=== PATIENT | female | born 1985 | race Caucasian/White ===

== ENCOUNTER → 2022-01-11 16:08 | Outpatient (CLI) | payer OTHER, SELFPAY ==
[2022-01-11 16:48] LABS: COVID19 -Nasal RAPID POSITIVE (Negative)
== END ==
PROVIDERS: Visit Provider Registered Nurse
DX: U07.1 COVID-19 (principal)
CPT/HCPCS: 87635

== ENCOUNTER 2022-09-24 14:19 | Emergency (ER) | payer OTHER, SELFPAY ==
[2022-09-24 14:21] VITALS: BP 133/92; PULSE 79; RESP 20; TEMP 36.4; O2SAT 100; BMI 34.0
--- NOTE | 2022-09-24 14:27 | DI.RAD.S_ITS ---
PROCEDURE: XR HAND RT MIN 3V INDICATIONS: Pain after first PT TECHNIQUE: 4 views of the hand(s) acquired. COMPARISON: None. FINDINGS: Bones: No fractures or dislocations. Carpal bones are normally aligned. No suspicious bony lesions. Soft tissues: No suspicious soft tissue calcifications. IMPRESSION: No acute fracture or dislocation. If there are persistent symptoms or clinical suspicion for pathology, then repeat radiographs or advanced imaging (CT or MRI) may be considered for further evaluation. Dictated by: Nehemias Boudreaux M.D. on 09/24/2022 at 13:58 Approved by: Nehemias Boudreaux M.D. on 09/24/2022 at 13:59
[2022-09-24 17:10] VITALS: BP 113/72; PULSE 60; O2SAT 98
--- NOTE | 2022-09-24 17:29 | PC.NURSE ---
Pt reports right hand and fingers began to swell after OT yesterday. Pt has not had any OT since childhood and this was first time back.
--- NOTE | 2022-09-24 17:44 | ED.UPPEXIN ---
HPI - Extremity Injury (Upper) General Chief Complaint: Extremity Injury, Upper Stated Complaint: R hand swelling Time Seen by Provider: 09/24/22 17:44 Source: patient Mode of arrival: Ambulatory History of Present Illness HPI narrative: Patient is a 37-year-old female with history of cerebral palsy presenting today with right hand pain and swelling. She reports that she started occupational therapy because she has a chronic right wrist and hand contracture. She went yesterday therapist stretched it and moved it today she woke up and it is significantly swollen. She would a little bit of numbness but that seems to be better. No fever or chills. No other complaints or injury. Related Data Allergies Allergy/AdvReac Type Severity Reaction Status Date / Time Penicillins Allergy Unknown Verified 09/24/22 14:26 Review of Systems Review of Systems ROS Unobtainable: All systems reviewed & are unremarkable except as noted in HPI and below Patient History Social History Smoking Status: Never smoker Smoking Status: Never smoker alcohol intake frequency: 0-2 drinks per day Substance Use Type: does not use Exam Initial Vital Signs Initial Vital Signs: Vital Signs Temperature 97.6 F 09/24/22 14:21 Pulse Rate 79 09/24/22 14:21 Respiratory Rate 20 09/24/22 14:21 Blood Pressure 133/92 H 09/24/22 14:21 Pulse Oximetry 100 09/24/22 14:21 Oxygen Delivery Method Room Air 09/24/22 14:21 GENERAL: Well-appearing, well-nourished and in no acute distress. CARDIOVASCULAR: peripheral pulses in tact, cap refill <2 sec RESPIRATORY: No respiratory distress, speaks in full sentences without difficulty EXTREMITIES: Normal range of motion, no clubbing or edema. Neurovascularly intact Right hand swollen able to move fingers no evidence of erythema distal radial pulse intact. NEUROLOGICAL: Cranial nerves II through XII grossly intact. Normal gait and speech. SKIN: Warm, dry, no petechiae, no rashes or lesions. Course Orders Ordered: ED Orders 09/24/22 14:27 XR hand RT min 3V Stat Vital Signs Vital signs: Vital Signs - 8 hr 09/24/22 14:21 09/24/22 17:10 Temperature 97.6 F Pulse Rate 79 60 Respiratory Rate 20 Blood Pressure 133/92 H 113/72 Pulse Oximetry 100 98 Oxygen Delivery Method Room Air Room Air MDM - Extremity Injury (Upper) Imaging Data Extremity x-ray #1: Radiologist's Impression: PROCEDURE:? XR HAND RT MIN 3V ? INDICATIONS:? Pain after first PT ? TECHNIQUE:? 4 views of the hand(s) acquired.? ? COMPARISON:? None. ? FINDINGS:? ? Bones:? No fractures or dislocations.? Carpal bones are normally aligned.? No suspicious bony lesions.? ? Soft tissues:? No suspicious soft tissue calcifications.? ? ? IMPRESSION:? No acute fracture or dislocation. ? If there are persistent symptoms or clinical suspicion for pathology, then repeat radiographs or advanced imaging (CT or MRI) may be considered for further evaluation. ? ? Dictated by: Nehemias Boudreaux M.D. on 09/24/2022 at 13:58 ? ? Approved by: Nehemias Boudreaux M.D. on 09/24/2022 at 13:59 ? [facility] Narrative Medical decision making narrative: Patient 37-year-old female who presents today with right hand swelling. She started occupational therapy yesterday for chronic right hand contracture. I suspect overuse injury. X-ray is negative no evidence of infection. Recommend elevation ice and ibuprofen. Supportive care only. Discharge Plan Departure Patient Disposition: Home Clinical Impression: Sprain of hand, right Instructions: DI for Hand Injury Activity Restrictions/Additional Instructions: *You have been diagnosed with right hand sprain *What to do: At this time keep hand and arm elevated ice as needed. Monitor for any finish her swelling I think it is probably from over use. *Continue to take medications as directed Tylenol Motrin as needed for pain *Follow up with your primary care provider in 2-3 days or call [phone] *Return to ER if you should have increasing pain swelling redness or any new, worsening or concerning symptoms Referrals: Lito,MD Avila [Primary Care Provider] - Stand Alone Forms: Patient Portal/API
== END 2022-09-24 17:57 | disposition home or self-care (01) ==
PROVIDERS: Emergency Provider Emergency Medicine
DX: S63.91XA Sprain of unspecified part of right wrist and hand, initial encounter (principal); X58.XXXA Exposure to other specified factors, initial encounter
CPT/HCPCS: 73130; 99281; 99283

== ENCOUNTER → 2023-02-11 09:04 | Outpatient (CLI) | payer OTHER, MEDICAID, SELFPAY ==
--- NOTE | 2023-02-11 09:49 | DI.MRI.S_ITS ---
PROCEDURE: MR LUMBAR SPINE WO CON INDICATIONS: LUMBAR STENOSIS WITH LEFT SCIATICA TECHNIQUE: Noncontrast sagittal T1 spin echo and T2 fast echo, sagittal STIR, and T2 fast spin echo through the lumbar spine. In cases with scoliosis, additional coronal T2 fast spin echo may be performed. COMPARISON: [facility] Outside Film, MR, MR LUMBAR SPINE WITHOUT CONTRAST, 11/21/2019, 17:12. FINDINGS: Image quality: Excellent. Alignment and Curvature: Approximately 12 mm of anterolisthesis of L5 on S1, consistent with grade 2, increased compared to prior where previously measured 9 mm. Bone Marrow: Bilateral pars interarticularis defects at L5-S1. Marrow is of normal overall signal. No acute vertebral body compression fractures. Spinal Cord: Conus medullaris terminates at the L1 level. Visualized cord demonstrates normal signal and size. Paraspinous Soft Tissues: No paravertebral masses. T12-L1: Normal appearance. L1-L2: Normal appearance. L2-L3: Normal appearance. L3-L4: Normal appearance. L4-L5: Facet arthropathy. No central canal or neural foraminal stenosis. L5-S1: Anterolisthesis. Facet arthropathy. Mild central canal stenosis is similar to prior. Severe bilateral neural foraminal stenosis. IMPRESSION: 1. Progression of grade 2 anterolisthesis at L5-S1 measuring 12 mm, previously 9 mm with associated pars interarticularis defects. 2. Similar mild central canal stenosis at L5-S1 and severe bilateral neural foraminal stenosis. Dictated by: Patrice Pascual M.D. on 02/13/2023 at 8:35 Approved by: Patrice Pascual M.D. on 02/13/2023 at 8:40
== END ==
PROVIDERS: Referring Provider Orthopaedic Surgery Orthopaedic Surgery of the Spine; Visit Provider Orthopaedic Surgery Orthopaedic Surgery of the Spine
DX: M48.062 Spinal stenosis, lumbar region with neurogenic claudication (principal); M43.17 Spondylolisthesis, lumbosacral region; M48.07 Spinal stenosis, lumbosacral region
CPT/HCPCS: 72148

== ENCOUNTER → 2023-04-28 14:52 | Outpatient (CLI) | payer OTHER, MEDICAID, SELFPAY ==
--- NOTE | 2023-04-28 14:55 | DI.RAD.S_ITS ---
PROCEDURE: XR ANKLE LT MIN 3V INDICATIONS: Left ankle injury TECHNIQUE: 3 views of the ankle were acquired. COMPARISON: None. FINDINGS: Bones: No fractures or dislocations. Ankle mortise is normally aligned. No suspicious bony lesions. Soft tissues: No tibiotalar joint effusion. Achilles tendon appears normal. IMPRESSION: No acute bony abnormality or significant effusion. Dictated by: Ryan Díaz M.D. on 04/28/2023 at 14:19 Approved by: Ryan Díaz M.D. on 04/28/2023 at 14:20
== END ==
PROVIDERS: Referring Provider Registered Nurse; Visit Provider Registered Nurse
DX: M25.572 Pain in left ankle and joints of left foot (principal)
CPT/HCPCS: 73610

== ENCOUNTER → 2023-07-07 | Outpatient (CLI) | payer OTHER, MEDICAID, SELFPAY ==
--- NOTE | 2023-07-07 14:17 | DI.MRI.S_ITS ---
PROCEDURE: MR HEAD/BRAIN WO CON INDICATIONS: Migraine TECHNIQUE: Noncontrast axial T1 spin echo, axial T2 fast spin echo, sagittal and axial FLAIR, coronal T2 fast spin echo, axial gradient echo, axial diffusion and ADC through the brain. COMPARISON: None. FINDINGS: Image quality: Excellent. CSF Spaces: Basal cisterns are patent. No extra-axial fluid collections. Ventricles are normal in size and shape. Brain: Focal encephalomalacia with volume loss can be seen involving the left centrum semiovale, as on series 7, image 18 and on series 8, image 18. No additional suspicious white matter foci can be seen. No intracranial masses or hemorrhage. [place]/white matter interface is normal. Brainstem appears normal. Diffusion-weighted images demonstrate no acute infarct. No chronic ischemic insults. Normal intravascular flow voids are present. Skull and face: Calvarium has normal marrow signal. Orbits appear normal. Sinuses: Sinuses and mastoids are clear. IMPRESSION: A cause of headache is not seen. There is focal volume loss and encephalomalacia involving the left centrum semiovale. Prior infarct is suspected, although please correlate with patient history. To the limits of this noncontrast study, no findings masses or mass effect can be seen. Dictated by: Michael Javed M.D. on 07/07/2023 at 14:29 Approved by: Michael Javed M.D. on 07/07/2023 at 14:30
== END ==
PROVIDERS: PCP Nurse Practitioner Family; Referring Provider Nurse Practitioner Family; Visit Provider Nurse Practitioner Family
DX: G43.909 Migraine, unspecified, not intractable, without status migrainosus (principal); G93.89 Other specified disorders of brain
CPT/HCPCS: 70551

== ENCOUNTER 2023-07-20 10:38 | Emergency (ER) | payer OTHER, MEDICAID, SELFPAY ==
[2023-07-20] VITALS (12 sets, daily range): BP systolic 112–134; BP diastolic 56–78; PULSE 77–86; RESP 12; TEMP 36.7; O2SAT 95–99; BMI 34.0
[2023-07-20 11:22] LABS: Add Manual Diff / Slide Review NO; Basophils Absolute Auto 0 /uL (0-100); Basophils Percent Auto 0.2 % (0-2); Eosinophils Absolute Auto 100 /uL (0-450); Hematocrit 36.1 % (36-46); Hemoglobin 12.3 g/dL (12.0-16.0); Lymphocytes Absolute Auto 1400 /uL (1100-4500); Lymphocytes Percent Auto 14.7 % (25-40); Mean Corpuscular Hemoglobin 31.6 PG (26-34); Monocytes Absolute Auto 400 /uL (0-900); Monocytes Percent Auto 4.7 % (3-14); Neutrophils Absolute Auto 7400 /uL (1500-7000); Neutrophils Percent Auto 79.4 % (50-75); Platelet Count 304 X10^3/uL (150-400); Red Blood Cell Count 3.88 X10^6/uL (4.0-5.2); Red Cell Distribution Width 12.4 % (11.6-14.8); White Blood Cell Count 9.4 X10^3/uL (4.5-11.0)
[2023-07-20 11:24] LABS: Bacteria Urine Few (2-10); Culture Indicated Urine Cult Not Indicated; Mucus Urine 1+ (Negative); RBC Urine 30-100/HPF (0-5/HPF); Squamous Epithelial Cell Urine 1-5 /HPF (0-5/HPF); Urine Volume 10mL (spun); WBC Urine 30-100/HPF (0-5/HPF)
[2023-07-20 11:28] LABS: Alanine Aminotransferase 18 IU/L (<35); Albumin 4.7 g/dL (3.5-5.0); Albumin Globulin Ratio 1.8 (1.0-2.8); Alkaline Phosphatase 64 U/L (38-126); Aspartate Aminotransferase 23 IU/L (14-36); BUN Creatinine Ratio 13.6 (6-22); Bilirubin Total 0.3 mg/dL (0.2-1.3); Blood Urea Nitrogen 9 mg/dL (7-17); Calcium 8.9 mg/dL (8.4-10.2); Carbon Dioxide 24 mmol/L (22-32); Chloride 111 mmol/L (98-107); Estimated Glomerular Filt Rate > 60 mL/min (>60); Globulin 2.6 g/dL (1.7-4.1); Glucose 103 mg/dL (70-100); HEMOLYSIS < 15 (0-50); Potassium 3.7 mmol/L (3.4-5.1); Sodium 141 mmol/L (137-145); Total Protein 7.3 g/dL (6.3-8.2)
--- NOTE | 2023-07-20 11:45 | DI.CT.S_ITS ---
PROCEDURE: CT KIDNEY URETER BLADDER (KUB) INDICATIONS: right flank pain TECHNIQUE: Axial sections were acquired from the lung bases to the pubic symphysis. Coronal and sagittal reformats were performed. For radiation dose reduction, the following was used: automated exposure control, adjustment of mA and/or kV according to patient size. COMPARISON: None. FINDINGS: Image quality: Diagnostic. Lower Chest: No significant findings. URINARY: Right Kidney: Moderate hydronephrosis. No renal calcifications. Right Ureter: 5 mm distal right ureteral calculus Hounsfield units 388 approximately 1 cm from the ureterovesicular junction. Left Kidney: No stones or hydronephrosis. Left Ureter: No hydroureter. Bladder: Normal wall thickness. No stones. ABDOMEN: Liver: No contour-deforming solid mass. Gallbladder: No radiopaque gallstones or wall thickening. Biliary ducts: No biliary dilation. Pancreas: No ductal dilation. Spleen: Size is within normal limits. Adrenal Glands: No adrenal nodules. Stomach and Bowel: Normal colonic caliber, without significant wall thickening. Peritoneum: No abnormal intraperitoneal fluid. No free air. Ventral Wall: No hernia. Abdominal Nodes: No enlarged retroperitoneal or mesenteric lymph nodes. Vessels: Aorta and inferior vena cava are normal in size. PELVIS: Pelvic Organs: Unremarkable. Pelvic Nodes: Unremarkable. Miscellaneous: No inguinal hernias are seen. Bones: Unremarkable. IMPRESSION: 5 mm distal right ureteral calculus with moderate hydronephrosis and hydroureter. Dictated by: Hayley Carrasco M.D. on 07/20/2023 at 12:26 Approved by: Hayley Carrasco M.D. on 07/20/2023 at 12:30
[2023-07-20] MEDS: KETOROLAC 30 MG/ML VIAL 15 MG IV (11:50)
--- NOTE | 2023-07-20 11:53 | ED_ITS ---
HPI - Abdominal Pain General Chief Complaint: Abdominal Pain Stated Complaint: rt abd and back pain Time Seen by Provider: 07/20/23 11:15 Source: patient Mode of arrival: Ambulatory History of Present Illness HPI narrative: Patient 38-year-old healthy female presents today with right-sided abdominal pain. She reports it started yesterday off and on sometimes nauseous no vomiting. Been taking Tylenol and ibuprofen without significant relief. Did not denies any fever or chills. Minimal flank pain but does seem to be radiating around to her abdomen. She denies any painful frequent urination. Related Data Home Medications Medication Instructions Recorded Confirmed baclofen 10 mg tablet 10 mg PO TID 04/28/23 04/28/23 control PO 04/28/23 escitalopram oxalate 10 mg tablet 10 mg PO DAILY 04/28/23 04/28/23 (Lexapro) Previous Rx's Medication Instructions Recorded hydrocodone 5 mg-acetaminophen 325 1 tab PO Q6H PRN pain #10 tabs 07/20/23 mg tablet nitrofurantoin 100 mg PO Q12H 5 days #10 caps 07/20/23 monohydrate/macrocrystals 100 mg capsule (Macrobid) ondansetron 4 mg disintegrating 4 mg PO Q8H PRN nausea and 07/20/23 tablet vomiting #10 tabs tamsulosin 0.4 mg capsule (Flomax) 0.4 mg PO BEDTIME #7 caps 07/20/23 Allergies Allergy/AdvReac Type Severity Reaction Status Date / Time Penicillins Allergy Unknown Verified 04/28/23 14:43 Patient History Social History Smoking Status: Never smoker Smoking Status: Never smoker alcohol intake frequency: 0-2 drinks per day Substance Use Type: does not use Exam Initial Vital Signs Initial Vital Signs: Vital Signs Pulse Rate 85 07/20/23 10:48 Pulse Oximetry 97 07/20/23 10:48 GENERAL: Alert pleasant 38-year-old female and in no acute distress. HEENT: Head atraumatic,EOMI, pupils reactive, face symmetric, moist mucous membranes CARDIOVASCULAR: Regular rate and rhythm without murmurs, rubs or gallops. RESPIRATORY: Breath sounds equal bilaterally, no wheezes rales or rhonchi. ABDOMEN: Soft, no real right upper quadrant tenderness negative Arredondo's sign soft nondistended : No CVA tenderness EXTREMITIES: Normal range of motion, no clubbing or edema. Neurovascularly intact NEUROLOGICAL: Alert and oriented x4.Normal gait and speech. SKIN: Warm, dry, no laceration, no petechiae, no rashes or lesions. Course Orders Ordered: ED Orders 07/20/23 10:50 Urine Microscopic Stat 07/20/23 11:07 CBC Auto Diff [Complete Blood Count AUTO DIFF] Stat CMP [Comprehensive Metabolic Panel] Stat Lipase Stat 07/20/23 11:45 CT kidney ureter bladder (KUB) Stat Discontinued Medications Ketorolac Tromethamine (Ketorolac 30 Mg/Ml Vial) 15 mg IV NOW ONE Stop: 07/20/23 11:46 Last Admin: 07/20/23 11:50 Dose: 15 mg Documented By: HARISH Vital Signs Vital signs: Vital Signs - 8 hr 07/20/23 10:48 07/20/23 10:49 07/20/23 10:49 Temperature Pulse Rate 85 84 Respiratory Rate Blood Pressure 134/76 Pulse Oximetry 97 97 Oxygen Delivery Method 07/20/23 11:00 07/20/23 11:00 07/20/23 11:11 Temperature 98.1 F Pulse Rate 84 83 Respiratory Rate 12 Blood Pressure 125/69 134/76 Pulse Oximetry 97 96 Oxygen Delivery Method Room Air 07/20/23 11:30 07/20/23 11:30 07/20/23 11:57 Temperature Pulse Rate 80 82 Respiratory Rate Blood Pressure 116/70 Pulse Oximetry 96 95 Oxygen Delivery Method 07/20/23 11:57 07/20/23 12:00 07/20/23 12:00 Temperature Pulse Rate 81 Respiratory Rate Blood Pressure 114/67 113/64 Pulse Oximetry 96 Oxygen Delivery Method 07/20/23 12:30 07/20/23 12:30 07/20/23 13:00 Temperature Pulse Rate 80 79 Respiratory Rate Blood Pressure 112/78 Pulse Oximetry 98 98 Oxygen Delivery Method 07/20/23 13:01 07/20/23 13:01 07/20/23 13:30 Temperature Pulse Rate 79 86 Respiratory Rate Blood Pressure 123/56 L Pulse Oximetry 97 99 Oxygen Delivery Method 07/20/23 13:30 07/20/23 14:00 07/20/23 14:00 Temperature Pulse Rate 77 Respiratory Rate Blood Pressure 112/62 113/65 Pulse Oximetry 99 Oxygen Delivery Method MDM - Abdominal Pain Lab Data 07/20/23 11:07 07/20/23 11:07 Labs: Lab Results 07/20/23 07/20/23 Range/Units 10:50 11:07 WBC 9.4 (4.5-11.0) X10^3/uL RBC 3.88 L (4.0-5.2) X10^6/uL Hgb 12.3 (12.0-16.0) g/dL Hct 36.1 (36-46) % MCV 93.0 (80-100) fL MCH 31.6 (26-34) PG MCHC 34.0 (30-36) % RDW 12.4 (11.6-14.8) % Plt Count 304 (150-400) X10^3/uL Neut % (Auto) 79.4 H (50-75) % Lymph % (Auto) 14.7 L (25-40) % [place] % (Auto) 4.7 (3-14) % Eos % (Auto) 1.0 L (2-4) % Baso % (Auto) 0.2 (0-2) % Neut # (Auto) 7400 H (4196-0757) /uL Lymph # (Auto) 1400 (8093-8468) /uL [place] # (Auto) 400 (0-900) /uL Eos # (Auto) 100 (0-450) /uL Baso # (Auto) 0 (0-100) /uL Sodium 141 (137-145) mmol/L Potassium 3.7 (3.4-5.1) mmol/L Chloride 111 H (98-107) mmol/L Carbon Dioxide 24 (22-32) mmol/L BUN 9 (7-17) mg/dL Creatinine 0.66 (0.52-1.04) mg/dL Estimated GFR > 60 (>60) mL/min BUN/Creatinine Ratio 13.6 (6-22) Glucose 103 H (70-100) mg/dL Calcium 8.9 (8.4-10.2) mg/dL Total Bilirubin 0.3 (0.2-1.3) mg/dL AST 23 (14-36) IU/L ALT 18 (<35) IU/L Alkaline Phosphatase 64 (38-126) U/L Total Protein 7.3 (6.3-8.2) g/dL Albumin 4.7 (3.5-5.0) g/dL Globulin 2.6 (1.7-4.1) g/dL Albumin/Globulin Ratio 1.8 (1.0-2.8) Lipase 106 (23-300) U/L Urine RBC 30-100/hpf H (0-5/HPF) Urine WBC 30-100/hpf H (0-5/HPF) Ur Squamous Epith Cells 1-5 /hpf (0-5/HPF) Urine Bacteria Few (2-10) H (None) Urine Mucus 1+ H (Negative) Ur Culture Indicated? Cult not indicated Vol Urine Centrifuged 10ml (spun) Point of care testing: Point of Care Testing Test Results Negative Urine Dip Bedside Urine Glucose Negative Bedside Urine Bilirubin - Negative Bedside Urine Ketone - Negative Urine Specific [place] 1.030 Bedside Urine Occult Blood +++ Bedside Urine pH 6.0 Bedside Urine Protein + 30 Bedside Urine Urobilinogen - Negative Bedside Urine Nitrite - Negative Bedside Urine Leukocytes - Negative Esterase Imaging Data CT scan - abdomen/pelvis: Radiologist's Impression: 5 mm distal right ureteral calculus with moderate hydronephrosis and hydroureter MDM Narrative Medical decision making narrative: Patient 38-year-old female presents today with waxing and waning abdominal pain nausea vomiting. She does have some hematuria concern initially for kidney stone. CT does in fact confirm a 5 mm distal ureter stone. Blood work has been reviewed overall reassuring no evidence ALLYSON creatinine is 0.66 no significant leukocytosis urinalysis does show hematuria and few bacteria CT has been reviewed Will treat for UTI and supportive care. Since pain is significantly better after Toradol. Discharge Plan Departure Patient Disposition: Home Clinical Impression: Kidney stones Instructions: DI for Kidney Stones Activity Restrictions/Additional Instructions: * You've been diagnosed with kidney stone * What to do: Increase fluid intake, Strain urine, try to catch stone * Please follow-up with your primary care provider in the next 2-3 days, you may require urology consultation please discuss this with -If you should have fever, or pain is uncontrolled with medication at home or any other concerning symptoms return to ER for further evaluation MEDICATIONS Take Motrin 600 mg every 8 hours as needed for pain Take [place] every 6 hours if needed for severe pain Take Zofran every 4-6 hours if needed for nausea CONTROLLED SUBSTANCE DISCHARGE (Narcotoic/benzodiazepine) 1. You have been prescribed narcotic medications, it does have acetaminophen/Tylenol/paracetamol in it so do not take extra Tylenol or Tylenol containing products 2. Please understand that we cannot provide further refills of narcotics, benzodiazepines or controlled substances through the ED and her pain management will need to be through your provider. 3. While on these medications you cannot drive or operate heavy machinery. 4. You cannot sign legal documents or perform any duties such as this. 5. As long as you're taking opiate pain medications he should also be taking a stool softener such as Colace, Dulcolax, MiraLAX or prune juice, to help avoid constipation. Prescriptions: New tamsulosin [Flomax] 0.4 mg capsule 0.4 mg PO BEDTIME Qty: 7 0RF hydrocodone-acetaminophen 5-325 mg tablet 1 tab PO Q6H PRN (Reason: pain) Qty: 10 0RF ondansetron 4 mg tablet,disintegrating 4 mg PO Q8H PRN (Reason: nausea and vomiting) Qty: 10 0RF nitrofurantoin monohyd/m-cryst [Macrobid] 100 mg capsule 100 mg PO Q12H 5 Days Qty: 10 0RF Rx Instructions: must administer with a meal/food No Action baclofen 10 mg tablet 10 mg PO TID escitalopram oxalate [Lexapro] 10 mg tablet 10 mg PO DAILY control PO Referrals: Tammy Abrams FNP-C [Primary Care Provider] - Stand Alone Forms: Patient Portal/API
[2023-07-20 12:18] LABS: Lipase 106 U/L (23-300)
== END 2023-07-20 14:13 | disposition home or self-care (01) ==
PROVIDERS: Emergency Provider Emergency Medicine; PCP Nurse Practitioner Family
DX: N20.0 Calculus of kidney (principal)
CPT/HCPCS: 36415; 74176; 80053; 81003; 81015; 81025; 83690; 85025; 96374; 99284; J1885

== ENCOUNTER 2024-01-12 07:30 | Outpatient (RCR) | payer OTHER, MEDICAID, SELFPAY ==
--- NOTE | 2023-12-27 15:45 | PT.OIE ---
Current Diagnoses Other cerebral palsy (12/27/23) Stiffness of right hand, not elsewhere classified (12/27/23) Stiffness of right hip, not elsewhere classified (12/27/23) Stiffness of left hip, not elsewhere classified (12/27/23) Stiffness of right knee, not elsewhere classified (12/27/23) Stiffness of right ankle, not elsewhere classified (12/27/23) Spondylolisthesis, lumbosacral region (12/27/23) Radiculopathy, lumbosacral region (12/27/23) Other lack of coordination (12/27/23) Weakness (12/27/23) Past Medical History (Last Reviewed 11/28/23 @ 09:52 by Carlitos Thompson DO) Lumbosacral radiculopathy at L5 Spondylolisthesis at L5-S1 level Past Surgical History (Last Reviewed 11/28/23 @ 09:52 by Carlitos Thompson DO) Surgical history of tubal ligation Visit Care Team Role Provider Type ALONDRA [place] Family Provider Non-Staff Primary Care Provider Specialty: Nursing Address: [address] [place] [address], [phone] Fax: Email: Carlitos Thompson DO Attending Provider Physician Referring Provider Specialty: Interventional Radiology Physiatry Pain Management Address: [address] [place] [address], [phone] Email: [email or web address] Therapy Initial Evaluation PT-OP-A Visit Information Start: 12/27/23 07:22 Freq: Status: Active Protocol: Document 12/27/23 07:23 NM (Rec: 12/27/23 08:57 NM [id number]) Out-Patient Physical Therapy Visit Information Visit Information Visit Type Initial Evaluation Visit Note 6 visits initially approved Visit Start Time 07:30 Visit Stop Time 08:15 Visit Number 1 Evaluation Information Evaluation Date 12/27/23 Precautions Precautions R sided CP and spondylolisthesis PT-OP-B Current Condition Start: 12/27/23 07:22 Freq: Status: Active Protocol: Document 12/27/23 07:23 NM (Rec: 12/27/23 08:57 NM [id number]) Current Condition History of Current Condition Onset Date chronic Current Complaints pain History of Current Condition Pt presents with back pain, has had since 15-18 y.o. Onset gradually occurred. She states that has spondylolisthesis for several years. She has had PT in the past for same condition; however, had to stop going. She did plan to have surgery ( fusion) last year, but did not go through. She has [address] Thompson, planning to try PT. Pt reports pain with sitting for long periods, lying down except in specific position ( has to prop her leg up, lie on her side), standing for any period of time (except for alternating weight shift). She reports that the only thing that helps is consciously stabilizing her core, kegels . She has CP on R side (demos R toe walk). She does botox every 3 months on her R side ( leg, arm, hand). She has an AFO (with spring)- has had for a year but reports causes increased pain (prescribed by MD for adult CP). She has not had one since elementary school. States that in the past year, she reports that she has had worsening pain on her R side; whereas, she reports that her L side used to hurt more. Reports that she has pain worse on L side, but occasionally on R side. Has follow up for botox in January 2024; will follow up with Dr. Thompson in March to assess next plan. Prior Treatments and Tests Lumbar spine MRI 02/2023 Impression: Progression of grade 2 anterolisthesis at L5- S1 measuring 12 mm, previously 9 mm with associated pars interarticularis defects. Similar mild central canal stenosis at L5-S1 and several bilateral neural foraminal stenosis. Treatment Goals Patient/Caregiver Goals decrease pain PT-OP-C Subjective Start: 12/27/23 07:22 Freq: Status: Active Protocol: Document 12/27/23 07:23 NM (Rec: 12/27/23 08:57 NM [id number]) OP-PT Subjective Patient Comments Patient Comments Pt consents to evaluation Patient Questionnaires Oswestry Low Back Index Oswestry Score 46/100 OP-PT Pain Assessment Location lumbar spine Pain Location Details L>R; PSIS/SIJ; lateral hip pain Intensity 7 Scale Used Numeric (0 - 10) Description Aching,Dull Description- Other tingling down to toes L side ( regular); worse:10 Frequency Constant Radiating Location RLE: to lateral knee, LLE: to 2-5 toes along posterior leg Variations/Patterns prn to RLE; most frequent to LLE Pain Aggravating Factors Position,Changing Position, Standing,Sitting,Walking, Bending,Lifting Other Pain Alleviating Factors exercises-core stabilization 1 -2/wk Comments Pain Comments Gabapentin, tylenol, ibuprofen PT-OP-F Manual Assessment Start: 12/27/23 07:22 Freq: Status: Active Protocol: Document 12/27/23 07:23 NM (Rec: 12/27/23 08:57 NM [id number]) Manual Assessments Soft Tissue Assessment Soft Tissue Mobility Assessment Shorted R gastrocnemius. B piriformis and paraspinals (L> R) shortened Joint Mobility Assessment Joint Mobility Assessment Hypermobility of lumbar spine. Hypomobility of B hips, R>L; empty end feels into flexion with rotation and limited by tone in sitting with RLE. R ankle hypomobile PT-OP-G Mobility & Gait Start: 12/27/23 07:22 Freq: Status: Active Protocol: Document 12/27/23 07:23 NM (Rec: 12/27/23 08:57 NM [id number]) OP Gait Assessment Gait Gait Assistance Required: Independent Distance (Feet) 150 Assistive Devices Assistive Device None Gait Deviations General Gait Pattern Antalgic,Decreased Feet Clearance Factors Limiting Gait Function Factors Limiting Gait Function Abnormal Tonal Influences, Decreased Strength,Limited Range of Motion,Pain Comments Gait Comments Demos R ankle plantarflexion with R hip hike during R swing and R knee remains flexed during R stance. Increased trunk rotation with R swing PT-OP-H Neuro Start: 12/27/23 07:22 Freq: Status: Active Protocol: Document 12/27/23 07:23 NM (Rec: 12/27/23 08:57 NM [id number]) Deep Tendon Reflex & Clonus Assessment Deep Tendon Reflex Left Achilles Deep Tendon Reflex 0 Absent Left Patellar Deep Tendon Reflex 0 Absent Right Achilles Deep Tendon Reflex 1+ Diminished Right Patellar Deep Tendon Reflex 2+ Normal Muscle Tone Tone Assessment Left Lower Extremity Muscle Tone Comments Modified Vidhi: will assess next session d/t time Demos immediate positioning into ankle plantarflexion/ inversion/supination PT-OP-J Posture/Palpation/Skin Start: 12/27/23 07:22 Freq: Status: Active Protocol: Document 12/27/23 07:23 NM (Rec: 12/27/23 08:57 NM [id number]) Posture Evaluation Position Standing Head/C-Spine Posture Forward Head Thorax Posture (L) Prominent L-Spine Posture Increased Lordosis Shoulder Posture (L) Rounded,(R) Rounded,(R) Elevated Pelvis Posture Anteriorly Tilted,(R) Iliac Crest Superior,(L) PSIS Posterior Hip Posture (L) Neutral,(R) Externally Rotated Knee Posture (L) Genu Valgus,(R) Genu Valgus,(R) Excess Flexion Ankle/Foot Posture (R) Plantarflexed,(R) Supinated,(R) Calcaneal Inversion,(R) Forefoot Inversion Palpation Assessment Location lumbar spine Palpation Details Tightness along B paraspinals, L>R Tenderness along L PSIS/SIJ, piriformis No tenderness with midline palpation except for L4-L5-S1- S2 PT-OP-K Range of Motion Start: 12/27/23 07:22 Freq: Status: Active Protocol: Document 12/27/23 07:23 NM (Rec: 12/27/23 08:57 NM [id number]) Lumbar Spine Range of Motion Lumbar Spine Active Percentage Flexion 50 Extension 10 Rotation Left 25 Rotation Right 50 Lateral Flexion Left 50 Lateral Flexion Right 25 Comments + flex, R LF, L rot ++ ext Hip Goniometric Range of Motion Hip Right Internal Rotation 15 External Rotation 18 Left Internal Rotation 30 External Rotation 18 PT-OP-L Special Tests Start: 12/27/23 07:22 Freq: Status: Active Protocol: Document 12/27/23 07:23 NM (Rec: 12/27/23 08:57 NM [id number]) Special Tests Lumbar Spine Special Tests Slump Test Results - Comments no change in tension Distraction Test Results + Comments mild pain relief Roper/Quadrant Test Results + Comments L ea direction to toes Hip Special Tests FADIR Test Results + Comments posterior hip/buttock and back pain reproduced PT-OP-M Strength Start: 12/27/23 07:22 Freq: Status: Active Protocol: Document 12/27/23 07:23 NM (Rec: 12/27/23 08:57 NM [id number]) Trunk Strength Trunk Manual Muscle Testing Flexion 4- Good- Extension 4- Good- Rotation Left 4- Good- Rotation Right 4- Good- Lateral Flexion Left 4- Good- Lateral Flexion Right 4- Good- Comments no pain Hip Strength Hip Manual Muscle Testing Right Flexion (L2) 3+ Fair+ Adduction 4- Good- External Rotation 3 Fair Internal Rotation 2+ Poor+ Left Flexion (L2) 4 Good External Rotation 4 Good Internal Rotation 4 Good Knee Strength Knee Manual Muscle Testing Right Flexion (S2) 3+ Fair+ Extension (L3) 3+ Fair+ Left Flexion (S2) 4+ Good+ Extension (L3) 4+ Good+ Ankle/Foot Strength Ankle and Foot Manual Muscle Testing Right Dorsiflexion (L4) 3+ Fair+ Plantarflexion (S1) 3+ Fair+ Comments tested in sitting Left Dorsiflexion (L4) 4+ Good+ Plantarflexion (S1) 4+ Good+ Comments tested in sitting PT-OP-Q Treatments Start: 12/27/23 07:22 Freq: Status: Active Protocol: Document 12/27/23 07:23 NM (Rec: 12/27/23 08:57 NM [id number]) Therapeutic Exercises Supine Exercises TrA activation Supine Exercise Name 1. activation, 2. BKFO Side bilateral Equipment Used increased time for all d/t education Reps/Minutes 1. 10x2 w/ PT and pt palpation, 2. 5 ea direction Comments pt has to change position d/t back pain s/p 5 BKFO Sitting Exercises abdominal bracing isometrics Sitting Exercise Name 1. rectus abdominus, 2. obliques Side bilateral Equipment Used 2 pillows on lap Reps/Minutes 10x5 ea position Comments monitored for pain- increased time for all d/t education Self-Care/Home Management Treatment Education Other Education Education on core bracing and lumbar/hip strengthening for spondylolisthesis stabilization. Education on gait patterns/abnormalities and AFO type/use with recommendation to follow up with referring provider for AFO to determine best wear pattern/time PT-OP-T Assessment and Plan Start: 12/27/23 07:22 Freq: Status: Active Protocol: Document 12/27/23 07:23 NM (Rec: 12/27/23 08:57 NM [id number]) Physical Therapy Assessment Rehab Potential Rehabilitation Potential Good Evaluation Complexity Number of Personal Factors/Comorbidities 1-2 Number of Body Systems Impaired 1-2 Clinical Presentation at Evaluation Stable Impairments Impairments Activity Tolerance,Balance, Functional Activities, Functional Mobility,Gait,Pain, Posture,ROM,Sensation,Soft Tissue Mobility,Strength,Tone, Transfers Other Concerns Barriers to Rehabilitation Pt unable to tolerate supine, sitting, or standing positions for more than a few minutes at time, and she has to frequently change positions due to pain. Goals Three Impairment compliance with HEP Sr. Logistics Analyst Goal (LTG) Pt will report compliance with HEP at least 3x/wk in order to maximize progression with PT and transition into maintenance program upon discharge LTG Duration 10 weeks 03/08/24 Two Impairment trunk strength 4-/5 Short Term Goal (STG) Pt will be educated on core bracing in various positions and be able to successfully demonstrate abdominal bracing at least 7/10 reps without cueing STG Duration 5 weeks 02/02/24 Sr. Logistics Analyst Goal (LTG) Pt will improve global trunk strength to at least 4/5 or better in order to demonstrate improved core bracing and increased trunk strength for spinal stability during ADLs LTG Duration 10 weeks 03/08/24 One Impairment Oswestry 46/100 indicating pain with ADLs and functional mobility Short Term Goal (STG) Pt will report that she is able to sit > 30 minutes and stand > 10 minutes without increase in low back pain (<7- 8/10) in order to demonstrate improved activity tolerance and symptom management STG Duration 8 weeks 02/23/24 Sr. Logistics Analyst Goal (LTG) Pt will report no increase in low back pain (<7-8/10) while cleaning her home in order to demonstrate improved activity tolerance and symptom management LTG Duration 10 weeks 03/08/24 Assessment Summary Assessment Pt is a 38 y.o. presenting with chronic lumbar spine pain with radicular symptoms into LLE and RLE. No known UNRULY but pain has been worsening for several years. She has received a surgical consult in the past but did not proceed. Past imaging reveals a spondylolisthesis and canal stenosis that is consistent with pt symptoms. Pt's radicular symptoms are worse on her L side, radiating posteriorly to her toes; whereas, her R sided radicular symptoms terminate at her knee. Pt's symptoms are reproduced with 3D testing and vertebral compression; small relief with distraction but pt is unable to tolerate lying on her back for prolonged periods due to pain. Pt patellar and achilles deep tendon reflexes not present on L side. She also has limitations in global trunk AROM and strength, B hip AROM and strength, in addition to decreased R ankle AROM and strength. Pt has R hemiplegic CP. She has increased tone on her R side for which she receives botox. She demonstrates a R plantarflexed and knee flexion gait pattern due to tone, which likely contributes heavily to her back pain symptoms. Pt has an AFO but did not use one previously since childhood, so she does not wear her AFO. She would likely benefit from an AFO transitioning period or a new referral for a different AFO. Pt has impairments in ROM, strength, gait, balance, functional mobility, pain management, and activity tolerance. PT educated pt on exam findings and plan of care. Pt would benefit from skilled PT for progressive trunk/core strengthening, flexibility in order to improve symptom management and improve activity tolerance. Physical Therapy Plan Frequency and Duration Frequency of Treatment 2x/Week Duration of treatment (weeks) 10 Plan of Care Start Date 12/27/23 Plan of Care End Date 03/08/24 Therapeutic Interventions Therapeutic Interventions Balance Training,Gait Training ,Home Exercise Program,Joint Mobilizations,Manual Therapy, Neuromuscular Re-education, Orthotic/Prosthetic Management ,Patient/Caregiver Education, Self-Care/Home Management, Sensory Integration,Soft Tissue Mobilization,Taping, Therapeutic Activities, Therapeutic Exercises Modalities Cold Pack/Ice Massage,Electric Stimulation,Hot Packs, Ultrasound Other Therapeutic Interventions No joint mobilizations to lumbar spine d/t anterolisthesis L5-S1, avoid end range flexion No mechanical traction Other Referrals/Consults Referrals/Consults Recommended Referral back to lead technician/ commercial green retrofit architect for adjustment of AFO Next Visit Focus/Plan Next Note Type Treatment Note Next Visit Plan Review HEP Initiate seated/sidelying core bracing. Gopi stretch vs standing hip flexor stretch, standing vs seated calf/ hamstring stretch. trial seated neural gliding RLOliver
--- NOTE | 2023-12-29 15:28 | PT.OTN ---
Current Diagnoses Other cerebral palsy (12/29/23) Stiffness of right hand, not elsewhere classified (12/29/23) Stiffness of right hip, not elsewhere classified (12/29/23) Stiffness of left hip, not elsewhere classified (12/29/23) Stiffness of right knee, not elsewhere classified (12/29/23) Stiffness of right ankle, not elsewhere classified (12/29/23) Spondylolisthesis, lumbosacral region (12/29/23) Radiculopathy, lumbosacral region (12/29/23) Other lack of coordination (12/29/23) Weakness (12/29/23) Physical Therapy Treatment Note PT-OP-A Visit Information Start: 12/27/23 07:22 Freq: Status: Active Protocol: Document 12/29/23 14:30 NM (Rec: 12/29/23 15:28 NM [id number]) Out-Patient Physical Therapy Visit Information Visit Information Visit Type Treatment Note Visit Note 6 visits initially approved Visit Start Time 14:33 Visit Stop Time 15:15 Visit Number 2 Evaluation Information Evaluation Date 12/27/23 Precautions Precautions R sided CP and spondylolisthesis PT-OP-B Current Condition Start: 12/27/23 07:22 Freq: Status: Active Protocol: Document 12/27/23 07:23 NM (Rec: 12/27/23 08:57 NM [id number]) Current Condition History of Current Condition Onset Date chronic Current Complaints pain History of Current Condition Pt presents with back pain, has had since 15-18 y.o. Onset gradually occurred. She states that has spondylolisthesis for several years. She has had PT in the past for same condition; however, had to stop going. She did plan to have surgery ( fusion) last year, but did not go through. She has [address] Thompson, planning to try PT. Pt reports pain with sitting for long periods, lying down except in specific position ( has to prop her leg up, lie on her side), standing for any period of time (except for alternating weight shift). She reports that the only thing that helps is consciously stabilizing her core, kegels . She has CP on R side (demos R toe walk). She does botox every 3 months on her R side ( leg, arm, hand). She has an AFO (with spring)- has had for a year but reports causes increased pain (prescribed by MD for adult CP). She has not had one since elementary school. States that in the past year, she reports that she has had worsening pain on her R side; whereas, she reports that her L side used to hurt more. Reports that she has pain worse on L side, but occasionally on R side. Has follow up for botox in January 2024; will follow up with Dr. Thompson in March to assess next plan. Prior Treatments and Tests Lumbar spine MRI 02/2023 Impression: Progression of grade 2 anterolisthesis at L5- S1 measuring 12 mm, previously 9 mm with associated pars interarticularis defects. Similar mild central canal stenosis at L5-S1 and several bilateral neural foraminal stenosis. Treatment Goals Patient/Caregiver Goals decrease pain PT-OP-C Subjective Start: 12/27/23 07:22 Freq: Status: Active Protocol: Document 12/29/23 14:30 NM (Rec: 12/29/23 15:28 NM [id number]) OP-PT Subjective Patient Comments Patient Comments No changes following evaluation. Reports 4-5/10 back pain today. Took her gabapentin today. HEP performed at home PT-OP-F Manual Assessment Start: 12/27/23 07:22 Freq: Status: Active Protocol: Document 12/27/23 07:23 NM (Rec: 12/27/23 08:57 NM [id number]) Manual Assessments Soft Tissue Assessment Soft Tissue Mobility Assessment Shorted R gastrocnemius. B piriformis and paraspinals (L> R) shortened Joint Mobility Assessment Joint Mobility Assessment Hypermobility of lumbar spine. Hypomobility of B hips, R>L; empty end feels into flexion with rotation and limited by tone in sitting with RLE. R ankle hypomobile PT-OP-G Mobility & Gait Start: 12/27/23 07:22 Freq: Status: Active Protocol: Document 12/27/23 07:23 NM (Rec: 12/27/23 08:57 NM [id number]) OP Gait Assessment Gait Gait Assistance Required: Independent Distance (Feet) 150 Assistive Devices Assistive Device None Gait Deviations General Gait Pattern Antalgic,Decreased Feet Clearance Factors Limiting Gait Function Factors Limiting Gait Function Abnormal Tonal Influences, Decreased Strength,Limited Range of Motion,Pain Comments Gait Comments Demos R ankle plantarflexion with R hip hike during R swing and R knee remains flexed during R stance. Increased trunk rotation with R swing PT-OP-H Neuro Start: 12/27/23 07:22 Freq: Status: Active Protocol: Document 12/29/23 14:30 NM (Rec: 12/29/23 15:28 NM [id number]) Deep Tendon Reflex & Clonus Assessment Deep Tendon Reflex Left Achilles Deep Tendon Reflex 0 Absent Left Patellar Deep Tendon Reflex 0 Absent Right Achilles Deep Tendon Reflex 1+ Diminished Right Patellar Deep Tendon Reflex 2+ Normal Muscle Tone Tone Assessment Left Lower Extremity Muscle Tone Comments Modified Vidhi: 1 Demos immediate positioning into ankle plantarflexion/ inversion/supination PT-OP-J Posture/Palpation/Skin Start: 12/27/23 07:22 Freq: Status: Active Protocol: Document 12/27/23 07:23 NM (Rec: 12/27/23 08:57 NM [id number]) Posture Evaluation Position Standing Head/C-Spine Posture Forward Head Thorax Posture (L) Prominent L-Spine Posture Increased Lordosis Shoulder Posture (L) Rounded,(R) Rounded,(R) Elevated Pelvis Posture Anteriorly Tilted,(R) Iliac Crest Superior,(L) PSIS Posterior Hip Posture (L) Neutral,(R) Externally Rotated Knee Posture (L) Genu Valgus,(R) Genu Valgus,(R) Excess Flexion Ankle/Foot Posture (R) Plantarflexed,(R) Supinated,(R) Calcaneal Inversion,(R) Forefoot Inversion Palpation Assessment Location lumbar spine Palpation Details Tightness along B paraspinals, L>R Tenderness along L PSIS/SIJ, piriformis No tenderness with midline palpation except for L4-L5-S1- S2 PT-OP-K Range of Motion Start: 12/27/23 07:22 Freq: Status: Active Protocol: Document 12/27/23 07:23 NM (Rec: 12/27/23 08:57 NM [id number]) Lumbar Spine Range of Motion Lumbar Spine Active Percentage Flexion 50 Extension 10 Rotation Left 25 Rotation Right 50 Lateral Flexion Left 50 Lateral Flexion Right 25 Comments + flex, R LF, L rot ++ ext Hip Goniometric Range of Motion Hip Right Internal Rotation 15 External Rotation 18 Left Internal Rotation 30 External Rotation 18 PT-OP-L Special Tests Start: 12/27/23 07:22 Freq: Status: Active Protocol: Document 12/27/23 07:23 NM (Rec: 12/27/23 08:57 NM [id number]) Special Tests Lumbar Spine Special Tests Slump Test Results - Comments no change in tension Distraction Test Results + Comments mild pain relief Roper/Quadrant Test Results + Comments L ea direction to toes Hip Special Tests FADIR Test Results + Comments posterior hip/buttock and back pain reproduced PT-OP-M Strength Start: 12/27/23 07:22 Freq: Status: Active Protocol: Document 12/27/23 07:23 NM (Rec: 12/27/23 08:57 NM [id number]) Trunk Strength Trunk Manual Muscle Testing Flexion 4- Good- Extension 4- Good- Rotation Left 4- Good- Rotation Right 4- Good- Lateral Flexion Left 4- Good- Lateral Flexion Right 4- Good- Comments no pain Hip Strength Hip Manual Muscle Testing Right Flexion (L2) 3+ Fair+ Adduction 4- Good- External Rotation 3 Fair Internal Rotation 2+ Poor+ Left Flexion (L2) 4 Good External Rotation 4 Good Internal Rotation 4 Good Knee Strength Knee Manual Muscle Testing Right Flexion (S2) 3+ Fair+ Extension (L3) 3+ Fair+ Left Flexion (S2) 4+ Good+ Extension (L3) 4+ Good+ Ankle/Foot Strength Ankle and Foot Manual Muscle Testing Right Dorsiflexion (L4) 3+ Fair+ Plantarflexion (S1) 3+ Fair+ Comments tested in sitting Left Dorsiflexion (L4) 4+ Good+ Plantarflexion (S1) 4+ Good+ Comments tested in sitting PT-OP-Q Treatments Start: 12/27/23 07:22 Freq: Status: Active Protocol: Document 12/29/23 14:30 NM (Rec: 12/29/23 15:28 NM [id number]) Therapeutic Exercises Sidelying Exercises hip flexor stretch Sidelying Exercise Name with strap Side bilateral Reps/Minutes 30 ea Sitting Exercises calf and hamstring stretch Side bilateral Equipment Used strap, foot elevated on step Reps/Minutes 60 ea Comments feels less in R leg hip abduction Side bilateral Resistance level 3 band Reps/Minutes 10 ea Comments with core bracing neural gliding Sitting Exercise Name 1. neutral, 2. w/ ER/abd, 3. with ADD/IR Side left Reps/Minutes 10 ea Comments with head movement, no trunk movement, neutral spine abdominal bracing isometrics Sitting Exercise Name 1. rectus abdominus (not today ), 2. obliques (not today), 3. lateral flex Side bilateral Equipment Used blue vietnamese ball Reps/Minutes 15x3 Other Exercises stretching Other Exercise Name hamstring and calf- HEP with towel under foot Side bilateral Equipment Used EARNESTINE Reps/Minutes 60 ea Comments feels more in R leg Manual Therapy Treatment Consent Patient gave verbal consent for manual Yes treatment Soft Tissue Mobilization lumbar spine Body Location paraspinals, glutes, QL Mobilization Type Rolling,Strumming Intensity/Depth Moderate Body Position Sitting Comments Arms supported on 2 pillows. R side more restricted but L side more tender and area of pain. Monitored for pain PT-OP-T Assessment and Plan Start: 12/27/23 07:22 Freq: Status: Active Protocol: Document 12/29/23 14:30 NM (Rec: 12/29/23 15:28 NM [id number]) Physical Therapy Assessment Goals Three Impairment compliance with HEP Cassandra Architect Goal (LTG) Pt will report compliance with HEP at least 3x/wk in order to maximize progression with PT and transition into maintenance program upon discharge LTG Duration 10 weeks 03/08/24 Two Impairment trunk strength 4-/5 Short Term Goal (STG) Pt will be educated on core bracing in various positions and be able to successfully demonstrate abdominal bracing at least 7/10 reps without cueing STG Duration 5 weeks 02/02/24 Cassandra Architect Goal (LTG) Pt will improve global trunk strength to at least 4/5 or better in order to demonstrate improved core bracing and increased trunk strength for spinal stability during ADLs LTG Duration 10 weeks 03/08/24 One Impairment Oswestry 46/100 indicating pain with ADLs and functional mobility Short Term Goal (STG) Pt will report that she is able to sit > 30 minutes and stand > 10 minutes without increase in low back pain (<7- 8/10) in order to demonstrate improved activity tolerance and symptom management STG Duration 8 weeks 02/23/24 Care Home Goal (LTG) Pt will report no increase in low back pain (<7-8/10) while cleaning her home in order to demonstrate improved activity tolerance and symptom management LTG Duration 10 weeks 03/08/24 Assessment Summary Assessment Pt reports no change from back pain 5/10 at end of session. Pain is easily flared with activity, demos decreased activity tolerance but pt is motivated to participate in PT . However, responds well to manual therapy and hip flexor stretching. Trialed both manual stretching and assisted stretching in sidelying with strap, pillow or PT supporting legs. No increased pain with lateral flexion isometric or seated hip abduction; however more limited on R side than L. Towel/EARNESTINE stretch more appropriate for RLE than seated stretch. Emphasis on improving muscle length on R side to offload pressure on low back. Pt would benefit from skilled PT for progressive flexibility and strengthening especially for trunk stabilization in order to improve symptom management for improved ADL tolerance. Physical Therapy Plan Frequency and Duration Frequency of Treatment 2x/Week Duration of treatment (weeks) 10 Plan of Care Start Date 12/27/23 Plan of Care End Date 03/08/24 Therapeutic Interventions Therapeutic Interventions Balance Training,Gait Training ,Home Exercise Program,Joint Mobilizations,Manual Therapy, Neuromuscular Re-education, Orthotic/Prosthetic Management ,Patient/Caregiver Education, Self-Care/Home Management, Sensory Integration,Soft Tissue Mobilization,Taping, Therapeutic Activities, Therapeutic Exercises Modalities Cold Pack/Ice Massage,Electric Stimulation,Hot Packs, Ultrasound Other Therapeutic Interventions No joint mobilizations to lumbar spine d/t anterolisthesis L5-S1, avoid end range flexion No mechanical traction Other Referrals/Consults Referrals/Consults Recommended Referral back to cereal supervisor/ cargo mate for adjustment of AFO Next Visit Focus/Plan Next Note Type Treatment Note Next Visit Plan Review HEP Teach log roll. Initiate seated/sidelying core bracing. sidelying vs standing hip flexor stretch, standing vs seated calf/hamstring stretch. seated neural gliding RLE
--- NOTE | 2024-01-03 08:16 | PT.OTN ---
Current Diagnoses Other cerebral palsy (01/03/24) Stiffness of right hand, not elsewhere classified (01/03/24) Stiffness of right hip, not elsewhere classified (01/03/24) Stiffness of left hip, not elsewhere classified (01/03/24) Stiffness of right knee, not elsewhere classified (01/03/24) Stiffness of right ankle, not elsewhere classified (01/03/24) Spondylolisthesis, lumbosacral region (01/03/24) Radiculopathy, lumbosacral region (01/03/24) Other lack of coordination (01/03/24) Weakness (01/03/24) Physical Therapy Treatment Note PT-OP-A Visit Information Start: 12/27/23 07:22 Freq: Status: Active Protocol: Document 01/03/24 07:26 NM (Rec: 01/03/24 08:16 NM [id number]) Out-Patient Physical Therapy Visit Information Visit Information Visit Type Treatment Note Visit Note 6 visits initially approved Visit Start Time 07:30 Visit Stop Time 08:10 Visit Number 3 Evaluation Information Evaluation Date 12/27/23 Precautions Precautions R sided CP and spondylolisthesis PT-OP-B Current Condition Start: 12/27/23 07:22 Freq: Status: Active Protocol: Document 12/27/23 07:23 NM (Rec: 12/27/23 08:57 NM [id number]) Current Condition History of Current Condition Onset Date chronic Current Complaints pain History of Current Condition Pt presents with back pain, has had since 15-18 y.o. Onset gradually occurred. She states that has spondylolisthesis for several years. She has had PT in the past for same condition; however, had to stop going. She did plan to have surgery ( fusion) last year, but did not go through. She has [address] Thompson, planning to try PT. Pt reports pain with sitting for long periods, lying down except in specific position ( has to prop her leg up, lie on her side), standing for any period of time (except for alternating weight shift). She reports that the only thing that helps is consciously stabilizing her core, kegels . She has CP on R side (demos R toe walk). She does botox every 3 months on her R side ( leg, arm, hand). She has an AFO (with spring)- has had for a year but reports causes increased pain (prescribed by MD for adult CP). She has not had one since elementary school. States that in the past year, she reports that she has had worsening pain on her R side; whereas, she reports that her L side used to hurt more. Reports that she has pain worse on L side, but occasionally on R side. Has follow up for botox in January 2024; will follow up with Dr. Thompson in March to assess next plan. Prior Treatments and Tests Lumbar spine MRI 02/2023 Impression: Progression of grade 2 anterolisthesis at L5- S1 measuring 12 mm, previously 9 mm with associated pars interarticularis defects. Similar mild central canal stenosis at L5-S1 and several bilateral neural foraminal stenosis. Treatment Goals Patient/Caregiver Goals decrease pain PT-OP-C Subjective Start: 12/27/23 07:22 Freq: Status: Active Protocol: Document 01/03/24 07:26 NM (Rec: 01/03/24 08:16 NM [id number]) OP-PT Subjective Patient Comments Patient Comments Pt reports her back is the same. Usually her back hurts more in the morning, states a little tender. States 6/10 today, states more achy after last session. States that the stretches at home feel good. PT-OP-F Manual Assessment Start: 12/27/23 07:22 Freq: Status: Active Protocol: Document 12/27/23 07:23 NM (Rec: 12/27/23 08:57 NM [id number]) Manual Assessments Soft Tissue Assessment Soft Tissue Mobility Assessment Shorted R gastrocnemius. B piriformis and paraspinals (L> R) shortened Joint Mobility Assessment Joint Mobility Assessment Hypermobility of lumbar spine. Hypomobility of B hips, R>L; empty end feels into flexion with rotation and limited by tone in sitting with RLE. R ankle hypomobile PT-OP-G Mobility & Gait Start: 12/27/23 07:22 Freq: Status: Active Protocol: Document 12/27/23 07:23 NM (Rec: 12/27/23 08:57 NM [id number]) OP Gait Assessment Gait Gait Assistance Required: Independent Distance (Feet) 150 Assistive Devices Assistive Device None Gait Deviations General Gait Pattern Antalgic,Decreased Feet Clearance Factors Limiting Gait Function Factors Limiting Gait Function Abnormal Tonal Influences, Decreased Strength,Limited Range of Motion,Pain Comments Gait Comments Demos R ankle plantarflexion with R hip hike during R swing and R knee remains flexed during R stance. Increased trunk rotation with R swing PT-OP-H Neuro Start: 12/27/23 07:22 Freq: Status: Active Protocol: Document 12/29/23 14:30 NM (Rec: 12/29/23 15:28 NM [id number]) Deep Tendon Reflex & Clonus Assessment Deep Tendon Reflex Left Achilles Deep Tendon Reflex 0 Absent Left Patellar Deep Tendon Reflex 0 Absent Right Achilles Deep Tendon Reflex 1+ Diminished Right Patellar Deep Tendon Reflex 2+ Normal Muscle Tone Tone Assessment Left Lower Extremity Muscle Tone Comments Modified Vidhi: 1 Demos immediate positioning into ankle plantarflexion/ inversion/supination PT-OP-J Posture/Palpation/Skin Start: 12/27/23 07:22 Freq: Status: Active Protocol: Document 12/27/23 07:23 NM (Rec: 12/27/23 08:57 NM [id number]) Posture Evaluation Position Standing Head/C-Spine Posture Forward Head Thorax Posture (L) Prominent L-Spine Posture Increased Lordosis Shoulder Posture (L) Rounded,(R) Rounded,(R) Elevated Pelvis Posture Anteriorly Tilted,(R) Iliac Crest Superior,(L) PSIS Posterior Hip Posture (L) Neutral,(R) Externally Rotated Knee Posture (L) Genu Valgus,(R) Genu Valgus,(R) Excess Flexion Ankle/Foot Posture (R) Plantarflexed,(R) Supinated,(R) Calcaneal Inversion,(R) Forefoot Inversion Palpation Assessment Location lumbar spine Palpation Details Tightness along B paraspinals, L>R Tenderness along L PSIS/SIJ, piriformis No tenderness with midline palpation except for L4-L5-S1- S2 PT-OP-K Range of Motion Start: 12/27/23 07:22 Freq: Status: Active Protocol: Document 12/27/23 07:23 NM (Rec: 12/27/23 08:57 NM [id number]) Lumbar Spine Range of Motion Lumbar Spine Active Percentage Flexion 50 Extension 10 Rotation Left 25 Rotation Right 50 Lateral Flexion Left 50 Lateral Flexion Right 25 Comments + flex, R LF, L rot ++ ext Hip Goniometric Range of Motion Hip Right Internal Rotation 15 External Rotation 18 Left Internal Rotation 30 External Rotation 18 PT-OP-L Special Tests Start: 12/27/23 07:22 Freq: Status: Active Protocol: Document 12/27/23 07:23 NM (Rec: 12/27/23 08:57 NM [id number]) Special Tests Lumbar Spine Special Tests Slump Test Results - Comments no change in tension Distraction Test Results + Comments mild pain relief Roper/Quadrant Test Results + Comments L ea direction to toes Hip Special Tests FADIR Test Results + Comments posterior hip/buttock and back pain reproduced PT-OP-M Strength Start: 12/27/23 07:22 Freq: Status: Active Protocol: Document 12/27/23 07:23 NM (Rec: 12/27/23 08:57 NM [id number]) Trunk Strength Trunk Manual Muscle Testing Flexion 4- Good- Extension 4- Good- Rotation Left 4- Good- Rotation Right 4- Good- Lateral Flexion Left 4- Good- Lateral Flexion Right 4- Good- Comments no pain Hip Strength Hip Manual Muscle Testing Right Flexion (L2) 3+ Fair+ Adduction 4- Good- External Rotation 3 Fair Internal Rotation 2+ Poor+ Left Flexion (L2) 4 Good External Rotation 4 Good Internal Rotation 4 Good Knee Strength Knee Manual Muscle Testing Right Flexion (S2) 3+ Fair+ Extension (L3) 3+ Fair+ Left Flexion (S2) 4+ Good+ Extension (L3) 4+ Good+ Ankle/Foot Strength Ankle and Foot Manual Muscle Testing Right Dorsiflexion (L4) 3+ Fair+ Plantarflexion (S1) 3+ Fair+ Comments tested in sitting Left Dorsiflexion (L4) 4+ Good+ Plantarflexion (S1) 4+ Good+ Comments tested in sitting PT-OP-Q Treatments Start: 12/27/23 07:22 Freq: Status: Active Protocol: Document 01/03/24 07:26 NM (Rec: 01/03/24 08:16 NM [id number]) Therapeutic Exercises Supine Exercises piriformis stretch Supine Exercise Name cross body stretch Side bilateral Equipment Used with strap to assist Reps/Minutes 2x30 Comments good feedback for stretch TrA activation Supine Exercise Name 1. activation w. draw up/in, 2 . BKFO, 3. ppt <>neutral, 4. heel slides Side bilateral Reps/Minutes 1. 10x2, 2.10 ea, 3. 10, 4. 2x8- midrange slide d/t begin back arch Comments verbal and tactile cues from PT; cued midrange ppt Sidelying Exercises hip flexor stretch Sidelying Exercise Name with strap Side bilateral Reps/Minutes 2x30 ea Manual Therapy Treatment Consent Patient gave verbal consent for manual Yes treatment Soft Tissue Mobilization LLE Body Location calf, HS, glute Mobilization Type Rolling,Strumming,Sustained Pressure Intensity/Depth Moderate Body Position Sidelying Comments Monitored for pain. Increased tightness and restriction, palpable relaxation with mobilization. lumbar spine Body Location paraspinals, glutes, QL Mobilization Type Rolling,Strumming Intensity/Depth Moderate Body Position Sidelying Comments Pillow between legs. R side more restricted but L side more tender and area of pain. Trialed gentle lateral flexion stretching of trunk. Monitored for pain PT-OP-T Assessment and Plan Start: 12/27/23 07:22 Freq: Status: Active Protocol: Document 01/03/24 07:26 NM (Rec: 01/03/24 08:16 NM [id number]) Physical Therapy Assessment Goals Three Impairment compliance with HEP [employer] Goal (LTG) Pt will report compliance with HEP at least 3x/wk in order to maximize progression with PT and transition into maintenance program upon discharge LTG Duration 10 weeks 03/08/24 Two Impairment trunk strength 4-/5 Short Term Goal (STG) Pt will be educated on core bracing in various positions and be able to successfully demonstrate abdominal bracing at least 7/10 reps without cueing STG Duration 5 weeks 02/02/24 Assisted Goal (LTG) Pt will improve global trunk strength to at least 4/5 or better in order to demonstrate improved core bracing and increased trunk strength for spinal stability during ADLs LTG Duration 10 weeks 03/08/24 One Impairment Oswestry 46/100 indicating pain with ADLs and functional mobility Short Term Goal (STG) Pt will report that she is able to sit > 30 minutes and stand > 10 minutes without increase in low back pain (<7- 8/10) in order to demonstrate improved activity tolerance and symptom management STG Duration 8 weeks 02/23/24 [employer] Reading Teacher Goal (LTG) Pt will report no increase in low back pain (<7-8/10) while cleaning her home in order to demonstrate improved activity tolerance and symptom management LTG Duration 10 weeks 03/08/24 Assessment Summary Assessment Pt demos improved supine core bracing today but does require cueing for control and for neutral-midrange spinal positiong for comfort. Continued with stretching of low back, piriformis, and hips /hamstrings. Responds well to LLE and low back manual therapy. Reports reduction in pain to 3/10 at end of session . Pt would continue to benefit from skilled PT for progressive flexibility and core/trunk strengthening in order to promote stability. Physical Therapy Plan Frequency and Duration Frequency of Treatment 2x/Week Duration of treatment (weeks) 10 Plan of Care Start Date 12/27/23 Plan of Care End Date 03/08/24 Therapeutic Interventions Therapeutic Interventions Balance Training,Gait Training ,Home Exercise Program,Joint Mobilizations,Manual Therapy, Neuromuscular Re-education, Orthotic/Prosthetic Management ,Patient/Caregiver Education, Self-Care/Home Management, Sensory Integration,Soft Tissue Mobilization,Taping, Therapeutic Activities, Therapeutic Exercises Modalities Cold Pack/Ice Massage,Electric Stimulation,Hot Packs, Ultrasound Other Therapeutic Interventions No joint mobilizations to lumbar spine d/t anterolisthesis L5-S1, avoid end range flexion No mechanical traction Other Referrals/Consults Referrals/Consults Recommended Referral back to clocksmith/ tanker service attendant for adjustment of AFO Next Visit Focus/Plan Next Note Type Treatment Note Next Visit Plan Review HEP as needed. Trial single KTC, bridge, lumbar counter stretch. Manual to LLE Teach log roll. Initiate seated/sidelying core bracing. sidelying vs standing hip flexor stretch, standing vs seated calf/hamstring stretch. seated neural gliding RLE
--- NOTE | 2024-01-05 08:17 | PT.OTN ---
Current Diagnoses Other cerebral palsy (01/05/24) Stiffness of right hand, not elsewhere classified (01/05/24) Stiffness of right hip, not elsewhere classified (01/05/24) Stiffness of left hip, not elsewhere classified (01/05/24) Stiffness of right knee, not elsewhere classified (01/05/24) Stiffness of right ankle, not elsewhere classified (01/05/24) Spondylolisthesis, lumbosacral region (01/05/24) Radiculopathy, lumbosacral region (01/05/24) Other lack of coordination (01/05/24) Weakness (01/05/24) Physical Therapy Treatment Note PT-OP-A Visit Information Start: 12/27/23 07:22 Freq: Status: Active Protocol: Document 01/05/24 07:32 NM (Rec: 01/05/24 08:17 NM [id number]) Out-Patient Physical Therapy Visit Information Visit Information Visit Type Treatment Note Visit Note 6 visits initially approved Visit Start Time 07:33 Visit Stop Time 08:14 Visit Number 4 Evaluation Information Evaluation Date 12/27/23 Precautions Precautions R sided CP and spondylolisthesis PT-OP-B Current Condition Start: 12/27/23 07:22 Freq: Status: Active Protocol: Document 12/27/23 07:23 NM (Rec: 12/27/23 08:57 NM [id number]) Current Condition History of Current Condition Onset Date chronic Current Complaints pain History of Current Condition Pt presents with back pain, has had since 15-18 y.o. Onset gradually occurred. She states that has spondylolisthesis for several years. She has had PT in the past for same condition; however, had to stop going. She did plan to have surgery ( fusion) last year, but did not go through. She has [address] Thompson, planning to try PT. Pt reports pain with sitting for long periods, lying down except in specific position ( has to prop her leg up, lie on her side), standing for any period of time (except for alternating weight shift). She reports that the only thing that helps is consciously stabilizing her core, kegels . She has CP on R side (demos R toe walk). She does botox every 3 months on her R side ( leg, arm, hand). She has an AFO (with spring)- has had for a year but reports causes increased pain (prescribed by MD for adult CP). She has not had one since elementary school. States that in the past year, she reports that she has had worsening pain on her R side; whereas, she reports that her L side used to hurt more. Reports that she has pain worse on L side, but occasionally on R side. Has follow up for botox in January 2024; will follow up with Dr. Thompson in March to assess next plan. Prior Treatments and Tests Lumbar spine MRI 02/2023 Impression: Progression of grade 2 anterolisthesis at L5- S1 measuring 12 mm, previously 9 mm with associated pars interarticularis defects. Similar mild central canal stenosis at L5-S1 and several bilateral neural foraminal stenosis. Treatment Goals Patient/Caregiver Goals decrease pain PT-OP-C Subjective Start: 12/27/23 07:22 Freq: Status: Active Protocol: Document 01/05/24 07:32 NM (Rec: 01/05/24 08:17 NM [id number]) OP-PT Subjective Patient Comments Patient Comments Pt reports that she felt good after last session, reports that today her back is bothering her this morning. Pt wanting to keep current schedule, see what happens with evicore. She did a lot of walking last night, reports 6 /10 pain today PT-OP-F Manual Assessment Start: 12/27/23 07:22 Freq: Status: Active Protocol: Document 12/27/23 07:23 NM (Rec: 12/27/23 08:57 NM [id number]) Manual Assessments Soft Tissue Assessment Soft Tissue Mobility Assessment Shorted R gastrocnemius. B piriformis and paraspinals (L> R) shortened Joint Mobility Assessment Joint Mobility Assessment Hypermobility of lumbar spine. Hypomobility of B hips, R>L; empty end feels into flexion with rotation and limited by tone in sitting with RLE. R ankle hypomobile PT-OP-G Mobility & Gait Start: 12/27/23 07:22 Freq: Status: Active Protocol: Document 12/27/23 07:23 NM (Rec: 12/27/23 08:57 NM [id number]) OP Gait Assessment Gait Gait Assistance Required: Independent Distance (Feet) 150 Assistive Devices Assistive Device None Gait Deviations General Gait Pattern Antalgic,Decreased Feet Clearance Factors Limiting Gait Function Factors Limiting Gait Function Abnormal Tonal Influences, Decreased Strength,Limited Range of Motion,Pain Comments Gait Comments Demos R ankle plantarflexion with R hip hike during R swing and R knee remains flexed during R stance. Increased trunk rotation with R swing PT-OP-H Neuro Start: 12/27/23 07:22 Freq: Status: Active Protocol: Document 12/29/23 14:30 NM (Rec: 12/29/23 15:28 NM [id number]) Deep Tendon Reflex & Clonus Assessment Deep Tendon Reflex Left Achilles Deep Tendon Reflex 0 Absent Left Patellar Deep Tendon Reflex 0 Absent Right Achilles Deep Tendon Reflex 1+ Diminished Right Patellar Deep Tendon Reflex 2+ Normal Muscle Tone Tone Assessment Left Lower Extremity Muscle Tone Comments Modified Vidhi: 1 Demos immediate positioning into ankle plantarflexion/ inversion/supination PT-OP-J Posture/Palpation/Skin Start: 12/27/23 07:22 Freq: Status: Active Protocol: Document 12/27/23 07:23 NM (Rec: 12/27/23 08:57 NM [id number]) Posture Evaluation Position Standing Head/C-Spine Posture Forward Head Thorax Posture (L) Prominent L-Spine Posture Increased Lordosis Shoulder Posture (L) Rounded,(R) Rounded,(R) Elevated Pelvis Posture Anteriorly Tilted,(R) Iliac Crest Superior,(L) PSIS Posterior Hip Posture (L) Neutral,(R) Externally Rotated Knee Posture (L) Genu Valgus,(R) Genu Valgus,(R) Excess Flexion Ankle/Foot Posture (R) Plantarflexed,(R) Supinated,(R) Calcaneal Inversion,(R) Forefoot Inversion Palpation Assessment Location lumbar spine Palpation Details Tightness along B paraspinals, L>R Tenderness along L PSIS/SIJ, piriformis No tenderness with midline palpation except for L4-L5-S1- S2 PT-OP-K Range of Motion Start: 12/27/23 07:22 Freq: Status: Active Protocol: Document 12/27/23 07:23 NM (Rec: 12/27/23 08:57 NM [id number]) Lumbar Spine Range of Motion Lumbar Spine Active Percentage Flexion 50 Extension 10 Rotation Left 25 Rotation Right 50 Lateral Flexion Left 50 Lateral Flexion Right 25 Comments + flex, R LF, L rot ++ ext Hip Goniometric Range of Motion Hip Right Internal Rotation 15 External Rotation 18 Left Internal Rotation 30 External Rotation 18 PT-OP-L Special Tests Start: 12/27/23 07:22 Freq: Status: Active Protocol: Document 12/27/23 07:23 NM (Rec: 12/27/23 08:57 NM [id number]) Special Tests Lumbar Spine Special Tests Slump Test Results - Comments no change in tension Distraction Test Results + Comments mild pain relief Roper/Quadrant Test Results + Comments L ea direction to toes Hip Special Tests FADIR Test Results + Comments posterior hip/buttock and back pain reproduced PT-OP-M Strength Start: 12/27/23 07:22 Freq: Status: Active Protocol: Document 12/27/23 07:23 NM (Rec: 12/27/23 08:57 NM [id number]) Trunk Strength Trunk Manual Muscle Testing Flexion 4- Good- Extension 4- Good- Rotation Left 4- Good- Rotation Right 4- Good- Lateral Flexion Left 4- Good- Lateral Flexion Right 4- Good- Comments no pain Hip Strength Hip Manual Muscle Testing Right Flexion (L2) 3+ Fair+ Adduction 4- Good- External Rotation 3 Fair Internal Rotation 2+ Poor+ Left Flexion (L2) 4 Good External Rotation 4 Good Internal Rotation 4 Good Knee Strength Knee Manual Muscle Testing Right Flexion (S2) 3+ Fair+ Extension (L3) 3+ Fair+ Left Flexion (S2) 4+ Good+ Extension (L3) 4+ Good+ Ankle/Foot Strength Ankle and Foot Manual Muscle Testing Right Dorsiflexion (L4) 3+ Fair+ Plantarflexion (S1) 3+ Fair+ Comments tested in sitting Left Dorsiflexion (L4) 4+ Good+ Plantarflexion (S1) 4+ Good+ Comments tested in sitting PT-OP-Q Treatments Start: 12/27/23 07:22 Freq: Status: Active Protocol: Document 01/05/24 07:32 NM (Rec: 01/05/24 08:17 NM [id number]) Therapeutic Exercises Supine Exercises LTR Supine Exercise Name trialed but d/c due to pain piriformis stretch Supine Exercise Name cross body stretch Side bilateral Equipment Used with strap to assist Reps/Minutes 60 ea Comments good feedback for stretch TrA activation Supine Exercise Name 1. ppt<>neutral, 2. heel slides, 3. hook march, 4. segmental bridge Side bilateral Reps/Minutes 1. 15, 2. 12 L and 8 R, 3. 10 ea, 4. 3x5 (small rom) Comments midrange; better core contract ; less range RLE for form Standing Exercises counter stretch Standing Exercise Name trialed: 1. fwd flex, 2. lateral flex Side bilateral Reps/Minutes 1. 2x30, 2. 2x30 Comments reports feels good Manual Therapy Treatment Soft Tissue Mobilization LLE Body Location calf, HS, glute Mobilization Type Rolling,Strumming,Sustained Pressure Intensity/Depth Moderate Body Position Sidelying Comments Monitored for pain. Increased tightness and restriction, palpable relaxation with mobilization. lumbar spine Body Location paraspinals, glutes, QL Mobilization Type Rolling,Strumming Intensity/Depth Moderate Body Position Sidelying Comments Pillow between legs. R side more restricted but L side more tender and area of pain. Performed sidelying lateral flexion stretch, iliac depression, and posterior pelvic tilt. Monitored for pain PT-OP-T Assessment and Plan Start: 12/27/23 07:22 Freq: Status: Active Protocol: Document 01/05/24 07:32 NM (Rec: 01/05/24 08:17 NM [id number]) Physical Therapy Assessment Goals Three Impairment compliance with HEP Shirt Ironer Supervisor Goal (LTG) Pt will report compliance with HEP at least 3x/wk in order to maximize progression with PT and transition into maintenance program upon discharge LTG Duration 10 weeks 03/08/24 Two Impairment trunk strength 4-/5 Short Term Goal (STG) Pt will be educated on core bracing in various positions and be able to successfully demonstrate abdominal bracing at least 7/10 reps without cueing STG Duration 5 weeks 02/02/24 Shirt Ironer Supervisor Goal (LTG) Pt will improve global trunk strength to at least 4/5 or better in order to demonstrate improved core bracing and increased trunk strength for spinal stability during ADLs LTG Duration 10 weeks 03/08/24 One Impairment Oswestry 46/100 indicating pain with ADLs and functional mobility Short Term Goal (STG) Pt will report that she is able to sit > 30 minutes and stand > 10 minutes without increase in low back pain (<7- 8/10) in order to demonstrate improved activity tolerance and symptom management STG Duration 8 weeks 02/23/24 Fdc Goal (LTG) Pt will report no increase in low back pain (<7-8/10) while cleaning her home in order to demonstrate improved activity tolerance and symptom management LTG Duration 10 weeks 03/08/24 Assessment Summary Assessment Reports reduction from 6/10 to 4/10 at end of session. Improved core bracing today, less cueing required for supine core. Mild pain in low back with R heel slides today, less ROM for trunk control and due to R foot position. Trialed gentle controlled mobility routine to address pt stiffness before getting out of bed; however, education to continue with 1 set of gentle supine core heel slides and marches vs spinal mobility routine due to pain. Initiated gentle extension motion with segmental bridge, very small ROM but without increase in symptoms. Good feedback to counter flexion stretches, no increase in back pain and reports less stiffness. Still responds best to manual therapy of low back and LLE. PT educated pt on insurance limitations but pt wanting to continue as scheduled at this time. Pt would continue to benefit from skilled PT for flexibility and core/trunk strength in order to improve symptom management and activity tolerance. Physical Therapy Plan Frequency and Duration Frequency of Treatment 2x/Week Duration of treatment (weeks) 10 Plan of Care Start Date 12/27/23 Plan of Care End Date 03/08/24 Therapeutic Interventions Therapeutic Interventions Balance Training,Gait Training ,Home Exercise Program,Joint Mobilizations,Manual Therapy, Neuromuscular Re-education, Orthotic/Prosthetic Management ,Patient/Caregiver Education, Self-Care/Home Management, Sensory Integration,Soft Tissue Mobilization,Taping, Therapeutic Activities, Therapeutic Exercises Modalities Cold Pack/Ice Massage,Electric Stimulation,Hot Packs, Ultrasound Other Therapeutic Interventions No joint mobilizations to lumbar spine d/t anterolisthesis L5-S1, avoid end range flexion No mechanical traction Other Referrals/Consults Referrals/Consults Recommended Referral back to laboratory aide/ systems development manager for adjustment of AFO Next Visit Focus/Plan Next Note Type Treatment Note Next Visit Plan Review HEP as needed. Cont w/ segmental bridge, counter stretch. Trial seated core with more flexion bias. Manual to LLE/back. Teach log roll and possibly address sleeping ergonomics. Cont stretching and core/trunk strengthening.
--- NOTE | 2024-01-10 08:16 | PT.OTN ---
Current Diagnoses Other cerebral palsy (01/10/24) Stiffness of right hand, not elsewhere classified (01/10/24) Stiffness of right hip, not elsewhere classified (01/10/24) Stiffness of left hip, not elsewhere classified (01/10/24) Stiffness of right knee, not elsewhere classified (01/10/24) Stiffness of right ankle, not elsewhere classified (01/10/24) Spondylolisthesis, lumbosacral region (01/10/24) Radiculopathy, lumbosacral region (01/10/24) Other lack of coordination (01/10/24) Weakness (01/10/24) Physical Therapy Treatment Note PT-OP-A Visit Information Start: 12/27/23 07:22 Freq: Status: Active Protocol: Document 01/10/24 07:31 SP (Rec: 01/10/24 08:21 SP [id number]) Out-Patient Physical Therapy Visit Information Visit Information Visit Type Treatment Note Visit Note 6 visits initially approved Visit Start Time 07:31 Visit Stop Time 08:16 Visit Number 5 Number of SPORTS OFFICIAL Visits 1 Evaluation Information Evaluation Date 12/27/23 Precautions Precautions R sided CP and spondylolisthesis PT-OP-B Current Condition Start: 12/27/23 07:22 Freq: Status: Active Protocol: Document 12/27/23 07:23 NM (Rec: 12/27/23 08:57 NM [id number]) Current Condition History of Current Condition Onset Date chronic Current Complaints pain History of Current Condition Pt presents with back pain, has had since 15-18 y.o. Onset gradually occurred. She states that has spondylolisthesis for several years. She has had PT in the past for same condition; however, had to stop going. She did plan to have surgery ( fusion) last year, but did not go through. She has [address] Thompson, planning to try PT. Pt reports pain with sitting for long periods, lying down except in specific position ( has to prop her leg up, lie on her side), standing for any period of time (except for alternating weight shift). She reports that the only thing that helps is consciously stabilizing her core, kegels . She has CP on R side (demos R toe walk). She does botox every 3 months on her R side ( leg, arm, hand). She has an AFO (with spring)- has had for a year but reports causes increased pain (prescribed by MD for adult CP). She has not had one since elementary school. States that in the past year, she reports that she has had worsening pain on her R side; whereas, she reports that her L side used to hurt more. Reports that she has pain worse on L side, but occasionally on R side. Has follow up for botox in January 2024; will follow up with Dr. Thompson in March to assess next plan. Prior Treatments and Tests Lumbar spine MRI 02/2023 Impression: Progression of grade 2 anterolisthesis at L5- S1 measuring 12 mm, previously 9 mm with associated pars interarticularis defects. Similar mild central canal stenosis at L5-S1 and several bilateral neural foraminal stenosis. Treatment Goals Patient/Caregiver Goals decrease pain PT-OP-C Subjective Start: 12/27/23 07:22 Freq: Status: Active Protocol: Document 01/10/24 07:31 SP (Rec: 01/10/24 08:21 SP [id number]) OP-PT Subjective Patient Comments Patient Comments Pt reports she felt good after last tx. Is compliant with HEP. Arrives with pain L low back radiating into L glut lateral thigh to calf but at times states goes to her toes. PT-OP-F Manual Assessment Start: 12/27/23 07:22 Freq: Status: Active Protocol: Document 12/27/23 07:23 NM (Rec: 12/27/23 08:57 NM [id number]) Manual Assessments Soft Tissue Assessment Soft Tissue Mobility Assessment Shorted R gastrocnemius. B piriformis and paraspinals (L> R) shortened Joint Mobility Assessment Joint Mobility Assessment Hypermobility of lumbar spine. Hypomobility of B hips, R>L; empty end feels into flexion with rotation and limited by tone in sitting with RLE. R ankle hypomobile PT-OP-G Mobility & Gait Start: 12/27/23 07:22 Freq: Status: Active Protocol: Document 12/27/23 07:23 NM (Rec: 12/27/23 08:57 NM [id number]) OP Gait Assessment Gait Gait Assistance Required: Independent Distance (Feet) 150 Assistive Devices Assistive Device None Gait Deviations General Gait Pattern Antalgic,Decreased Feet Clearance Factors Limiting Gait Function Factors Limiting Gait Function Abnormal Tonal Influences, Decreased Strength,Limited Range of Motion,Pain Comments Gait Comments Demos R ankle plantarflexion with R hip hike during R swing and R knee remains flexed during R stance. Increased trunk rotation with R swing PT-OP-H Neuro Start: 12/27/23 07:22 Freq: Status: Active Protocol: Document 12/29/23 14:30 NM (Rec: 12/29/23 15:28 NM [id number]) Deep Tendon Reflex & Clonus Assessment Deep Tendon Reflex Left Achilles Deep Tendon Reflex 0 Absent Left Patellar Deep Tendon Reflex 0 Absent Right Achilles Deep Tendon Reflex 1+ Diminished Right Patellar Deep Tendon Reflex 2+ Normal Muscle Tone Tone Assessment Left Lower Extremity Muscle Tone Comments Modified Vidhi: 1 Demos immediate positioning into ankle plantarflexion/ inversion/supination PT-OP-J Posture/Palpation/Skin Start: 12/27/23 07:22 Freq: Status: Active Protocol: Document 12/27/23 07:23 NM (Rec: 12/27/23 08:57 NM [id number]) Posture Evaluation Position Standing Head/C-Spine Posture Forward Head Thorax Posture (L) Prominent L-Spine Posture Increased Lordosis Shoulder Posture (L) Rounded,(R) Rounded,(R) Elevated Pelvis Posture Anteriorly Tilted,(R) Iliac Crest Superior,(L) PSIS Posterior Hip Posture (L) Neutral,(R) Externally Rotated Knee Posture (L) Genu Valgus,(R) Genu Valgus,(R) Excess Flexion Ankle/Foot Posture (R) Plantarflexed,(R) Supinated,(R) Calcaneal Inversion,(R) Forefoot Inversion Palpation Assessment Location lumbar spine Palpation Details Tightness along B paraspinals, L>R Tenderness along L PSIS/SIJ, piriformis No tenderness with midline palpation except for L4-L5-S1- S2 PT-OP-K Range of Motion Start: 12/27/23 07:22 Freq: Status: Active Protocol: Document 12/27/23 07:23 NM (Rec: 12/27/23 08:57 NM [id number]) Lumbar Spine Range of Motion Lumbar Spine Active Percentage Flexion 50 Extension 10 Rotation Left 25 Rotation Right 50 Lateral Flexion Left 50 Lateral Flexion Right 25 Comments + flex, R LF, L rot ++ ext Hip Goniometric Range of Motion Hip Right Internal Rotation 15 External Rotation 18 Left Internal Rotation 30 External Rotation 18 PT-OP-L Special Tests Start: 12/27/23 07:22 Freq: Status: Active Protocol: Document 12/27/23 07:23 NM (Rec: 12/27/23 08:57 NM [id number]) Special Tests Lumbar Spine Special Tests Slump Test Results - Comments no change in tension Distraction Test Results + Comments mild pain relief Roper/Quadrant Test Results + Comments L ea direction to toes Hip Special Tests FADIR Test Results + Comments posterior hip/buttock and back pain reproduced PT-OP-M Strength Start: 12/27/23 07:22 Freq: Status: Active Protocol: Document 12/27/23 07:23 NM (Rec: 12/27/23 08:57 NM [id number]) Trunk Strength Trunk Manual Muscle Testing Flexion 4- Good- Extension 4- Good- Rotation Left 4- Good- Rotation Right 4- Good- Lateral Flexion Left 4- Good- Lateral Flexion Right 4- Good- Comments no pain Hip Strength Hip Manual Muscle Testing Right Flexion (L2) 3+ Fair+ Adduction 4- Good- External Rotation 3 Fair Internal Rotation 2+ Poor+ Left Flexion (L2) 4 Good External Rotation 4 Good Internal Rotation 4 Good Knee Strength Knee Manual Muscle Testing Right Flexion (S2) 3+ Fair+ Extension (L3) 3+ Fair+ Left Flexion (S2) 4+ Good+ Extension (L3) 4+ Good+ Ankle/Foot Strength Ankle and Foot Manual Muscle Testing Right Dorsiflexion (L4) 3+ Fair+ Plantarflexion (S1) 3+ Fair+ Comments tested in sitting Left Dorsiflexion (L4) 4+ Good+ Plantarflexion (S1) 4+ Good+ Comments tested in sitting PT-OP-Q Treatments Start: 12/27/23 07:22 Freq: Status: Active Protocol: Document 01/10/24 07:31 SP (Rec: 01/10/24 08:21 SP [id number]) Therapeutic Exercises Supine Exercises HS stretch /c AP Supine Exercise Name initiated in PT- added to HEP Side left Equipment Used strap behind thigh for supoprt assist. Reps/Minutes x10-20 ankle pumps Comments monitor for pain- no pain reported piriformis stretch Supine Exercise Name cross body stretch Side bilateral Equipment Used with strap to assist around thigh Reps/Minutes 60 ea Comments good feedback for stretch TrA activation Supine Exercise Name 1. ppt<>neutral, 2. heel slides, 3. hook march, 4. segmental bridge Side bilateral Reps/Minutes 1. 15 2. 10 reps alternating BLE 3. 10 ea, 4. x10 (small rom) Comments midrange; better core contract level pelvis; less range RLE for form Sitting Exercises TA marching Sitting Exercise Name BLEs & BUEs: bug- added to HEp /c HO Side bilateral Resistance AROM Reps/Minutes 2x10 Comments Cued upright posture, TA, alternate BUEs/BLEs Standing Exercises counter stretch Standing Exercise Name HEP 1. fwd flex, 2. lateral flex Side bilateral Reps/Minutes 1. 2x30, 2. 2x30 Comments reports feels good Manual Therapy Treatment Consent Patient gave verbal consent for manual Yes treatment Soft Tissue Mobilization LLE Body Location calf, HS, glute Mobilization Type Rolling,Strumming,Sustained Pressure,Other Intensity/Depth Moderate Body Position Sidelying Comments Monitored for pain. Increased tightness and restriction, palpable relaxation with mobilization. STMs and MWM hip IR/ER clamshell. lumbar spine Body Location B paraspinals, glutes, QL Mobilization Type Rolling,Strumming,Trigger Point Release,Other Intensity/Depth Moderate Body Position Sidelying Comments Pillow between legs. R side more restricted but L side. Performed sidelying pelvis anterior elevation<>posterior depression against resistanace . Monitored for pain Self-Care/Home Management Treatment Education Patient Education Body Mechanics,Home Exercise Program,Pain Management, Posture Other Education Time spent educaiton of anatomy of back, hips for proper alignment, instructed use pillows for sidelying and supine support hip and spinal alignment, improved understanding addition between /under thighs. Added supine active HS stretch with AP and seated core bug /c HO. PT-OP-T Assessment and Plan Start: 12/27/23 07:22 Freq: Status: Active Protocol: Document 01/10/24 07:31 SP (Rec: 01/10/24 08:21 SP [id number]) Physical Therapy Assessment Goals Three Impairment compliance with HEP Software Implementation Specialist Goal (LTG) Pt will report compliance with HEP at least 3x/wk in order to maximize progression with PT and transition into maintenance program upon discharge LTG Duration 10 weeks 03/08/24 Two Impairment trunk strength 4-/5 Short Term Goal (STG) Pt will be educated on core bracing in various positions and be able to successfully demonstrate abdominal bracing at least 7/10 reps without cueing STG Duration 5 weeks 02/02/24 [facility] Goal (LTG) Pt will improve global trunk strength to at least 4/5 or better in order to demonstrate improved core bracing and increased trunk strength for spinal stability during ADLs LTG Duration 10 weeks 03/08/24 One Impairment Oswestry 46/100 indicating pain with ADLs and functional mobility Short Term Goal (STG) Pt will report that she is able to sit > 30 minutes and stand > 10 minutes without increase in low back pain (<7- 8/10) in order to demonstrate improved activity tolerance and symptom management STG Duration 8 weeks 02/23/24 [facility] Goal (LTG) Pt will report no increase in low back pain (<7-8/10) while cleaning her home in order to demonstrate improved activity tolerance and symptom management LTG Duration 10 weeks 03/08/24 Assessment Summary Assessment Pt improved TA during supine HEP and activations added seated bug on firm then moving stool (rolling chair home) good response and core fac reported. Improved pelvis mobility, decreased hip and LB tightness post manual, good activation QL and TA during PNF pelvis. Pt report LB and L hip felt alot better end tx then when arrived. Physical Therapy Plan Frequency and Duration Frequency of Treatment 2x/Week Duration of treatment (weeks) 10 Plan of Care Start Date 12/27/23 Plan of Care End Date 03/08/24 Therapeutic Interventions Therapeutic Interventions Balance Training,Gait Training ,Home Exercise Program,Joint Mobilizations,Manual Therapy, Neuromuscular Re-education, Orthotic/Prosthetic Management ,Patient/Caregiver Education, Self-Care/Home Management, Sensory Integration,Soft Tissue Mobilization,Taping, Therapeutic Activities, Therapeutic Exercises Modalities Cold Pack/Ice Massage,Electric Stimulation,Hot Packs, Ultrasound Other Therapeutic Interventions No joint mobilizations to lumbar spine d/t anterolisthesis L5-S1, avoid end range flexion No mechanical traction Other Referrals/Consults Referrals/Consults Recommended Referral back to mechanical manager/ exhaust and muffler fitter for adjustment of AFO Next Visit Focus/Plan Next Note Type Treatment Note Next Visit Plan Review HEP as needed. Cont w/ segmental bridge, counter stretch, seated core bugwith more flexion bias. Manual to LLE/back. Teach log roll and possibly address sleeping ergonomics. Cont stretching and core/trunk strengthening.
--- NOTE | 2024-01-12 09:29 | PT.OTN ---
Current Diagnoses Other cerebral palsy (01/12/24) Stiffness of right hand, not elsewhere classified (01/12/24) Stiffness of right hip, not elsewhere classified (01/12/24) Stiffness of left hip, not elsewhere classified (01/12/24) Stiffness of right knee, not elsewhere classified (01/12/24) Stiffness of right ankle, not elsewhere classified (01/12/24) Spondylolisthesis, lumbosacral region (01/12/24) Radiculopathy, lumbosacral region (01/12/24) Other lack of coordination (01/12/24) Weakness (01/12/24) Physical Therapy Treatment Note PT-OP-A Visit Information Start: 12/27/23 07:22 Freq: Status: Active Protocol: Document 01/12/24 07:29 NM (Rec: 01/12/24 08:16 NM [id number]) Out-Patient Physical Therapy Visit Information Visit Information Visit Type Treatment Note Visit Note 6 visits initially approved Visit Start Time 07:32 Visit Stop Time 08:12 Visit Number 6 Evaluation Information Evaluation Date 12/27/23 Precautions Precautions R sided CP and spondylolisthesis PT-OP-B Current Condition Start: 12/27/23 07:22 Freq: Status: Active Protocol: Document 12/27/23 07:23 NM (Rec: 12/27/23 08:57 NM [id number]) Current Condition History of Current Condition Onset Date chronic Current Complaints pain History of Current Condition Pt presents with back pain, has had since 15-18 y.o. Onset gradually occurred. She states that has spondylolisthesis for several years. She has had PT in the past for same condition; however, had to stop going. She did plan to have surgery ( fusion) last year, but did not go through. She has [address] Thompson, planning to try PT. Pt reports pain with sitting for long periods, lying down except in specific position ( has to prop her leg up, lie on her side), standing for any period of time (except for alternating weight shift). She reports that the only thing that helps is consciously stabilizing her core, kegels . She has CP on R side (demos R toe walk). She does botox every 3 months on her R side ( leg, arm, hand). She has an AFO (with spring)- has had for a year but reports causes increased pain (prescribed by MD for adult CP). She has not had one since elementary school. States that in the past year, she reports that she has had worsening pain on her R side; whereas, she reports that her L side used to hurt more. Reports that she has pain worse on L side, but occasionally on R side. Has follow up for botox in January 2024; will follow up with Dr. Thompson in March to assess next plan. Prior Treatments and Tests Lumbar spine MRI 02/2023 Impression: Progression of grade 2 anterolisthesis at L5- S1 measuring 12 mm, previously 9 mm with associated pars interarticularis defects. Similar mild central canal stenosis at L5-S1 and several bilateral neural foraminal stenosis. Treatment Goals Patient/Caregiver Goals decrease pain PT-OP-C Subjective Start: 12/27/23 07:22 Freq: Status: Active Protocol: Document 01/12/24 07:29 NM (Rec: 01/12/24 08:16 NM [id number]) OP-PT Subjective Patient Comments Patient Comments Pt reports that she is is experiencing less paind uring the day and is able to do more during the day as far as household and ADLs. She is more concious of core. Worse is still waking up in the morning due to stiffness, or with sleeping. However, reports that changes in sleeping ergonomics has improved. PT-OP-F Manual Assessment Start: 12/27/23 07:22 Freq: Status: Active Protocol: Document 12/27/23 07:23 NM (Rec: 12/27/23 08:57 NM [id number]) Manual Assessments Soft Tissue Assessment Soft Tissue Mobility Assessment Shorted R gastrocnemius. B piriformis and paraspinals (L> R) shortened Joint Mobility Assessment Joint Mobility Assessment Hypermobility of lumbar spine. Hypomobility of B hips, R>L; empty end feels into flexion with rotation and limited by tone in sitting with RLE. R ankle hypomobile PT-OP-G Mobility & Gait Start: 12/27/23 07:22 Freq: Status: Active Protocol: Document 12/27/23 07:23 NM (Rec: 12/27/23 08:57 NM [id number]) OP Gait Assessment Gait Gait Assistance Required: Independent Distance (Feet) 150 Assistive Devices Assistive Device None Gait Deviations General Gait Pattern Antalgic,Decreased Feet Clearance Factors Limiting Gait Function Factors Limiting Gait Function Abnormal Tonal Influences, Decreased Strength,Limited Range of Motion,Pain Comments Gait Comments Demos R ankle plantarflexion with R hip hike during R swing and R knee remains flexed during R stance. Increased trunk rotation with R swing PT-OP-H Neuro Start: 12/27/23 07:22 Freq: Status: Active Protocol: Document 12/29/23 14:30 NM (Rec: 12/29/23 15:28 NM [id number]) Deep Tendon Reflex & Clonus Assessment Deep Tendon Reflex Left Achilles Deep Tendon Reflex 0 Absent Left Patellar Deep Tendon Reflex 0 Absent Right Achilles Deep Tendon Reflex 1+ Diminished Right Patellar Deep Tendon Reflex 2+ Normal Muscle Tone Tone Assessment Left Lower Extremity Muscle Tone Comments Modified Vidhi: 1 Demos immediate positioning into ankle plantarflexion/ inversion/supination PT-OP-J Posture/Palpation/Skin Start: 12/27/23 07:22 Freq: Status: Active Protocol: Document 12/27/23 07:23 NM (Rec: 12/27/23 08:57 NM [id number]) Posture Evaluation Position Standing Head/C-Spine Posture Forward Head Thorax Posture (L) Prominent L-Spine Posture Increased Lordosis Shoulder Posture (L) Rounded,(R) Rounded,(R) Elevated Pelvis Posture Anteriorly Tilted,(R) Iliac Crest Superior,(L) PSIS Posterior Hip Posture (L) Neutral,(R) Externally Rotated Knee Posture (L) Genu Valgus,(R) Genu Valgus,(R) Excess Flexion Ankle/Foot Posture (R) Plantarflexed,(R) Supinated,(R) Calcaneal Inversion,(R) Forefoot Inversion Palpation Assessment Location lumbar spine Palpation Details Tightness along B paraspinals, L>R Tenderness along L PSIS/SIJ, piriformis No tenderness with midline palpation except for L4-L5-S1- S2 PT-OP-K Range of Motion Start: 12/27/23 07:22 Freq: Status: Active Protocol: Document 01/12/24 07:29 NM (Rec: 01/12/24 08:16 NM [id number]) Lumbar Spine Range of Motion Lumbar Spine Active Percentage Flexion 60 Extension 10 Rotation Left 25 Rotation Right 50 Lateral Flexion Left 50 Lateral Flexion Right 25 Comments + flex, R LF, L rot ++ ext IE: 50% flex PT-OP-L Special Tests Start: 12/27/23 07:22 Freq: Status: Active Protocol: Document 12/27/23 07:23 NM (Rec: 12/27/23 08:57 NM [id number]) Special Tests Lumbar Spine Special Tests Slump Test Results - Comments no change in tension Distraction Test Results + Comments mild pain relief Roper/Quadrant Test Results + Comments L ea direction to toes Hip Special Tests FADIR Test Results + Comments posterior hip/buttock and back pain reproduced PT-OP-M Strength Start: 12/27/23 07:22 Freq: Status: Active Protocol: Document 01/12/24 07:29 NM (Rec: 01/12/24 08:16 NM [id number]) Trunk Strength Trunk Manual Muscle Testing Flexion 4 Good Extension 4 Good Rotation Left 4 Good Rotation Right 4 Good Lateral Flexion Left 4 Good Lateral Flexion Right 4 Good Comments no pain IE: 4-/5 01/12/24: 4/5 w/o pain Hip Strength Hip Manual Muscle Testing Right Flexion (L2) 4- Good- Abduction 4 Good Adduction 4- Good- External Rotation 3 Fair Internal Rotation 2+ Poor+ Comments IE: 3+/5 for hip flex Left Flexion (L2) 4 Good Abduction 4 Good External Rotation 4 Good Internal Rotation 4 Good PT-OP-Q Treatments Start: 12/27/23 07:22 Freq: Status: Active Protocol: Document 01/12/24 07:29 NM (Rec: 01/12/24 08:16 NM [id number]) Therapeutic Exercises Supine Exercises TrA activation Supine Exercise Name performed in seated and supine for testing Sitting Exercises TA marching Sitting Exercise Name 1. dying bug HEP review, 2. hip abd w/ slider, 3. uni lat pull down (HEP) Side bilateral Resistance 1. AROM, 2. lvl 1 band thighs/ slider, 3. level 1 band Equipment Used sitting on stool Reps/Minutes 1. 8 non-alt, 8 alt, 2. 8 ea, 3. 10 ea Comments cued upright posture prn, no shift trunk; improved w/ reps, no pain, hard Standing Exercises counter stretch Standing Exercise Name HEP review 1. fwd flex, 2. lateral flex Side bilateral Equipment Used lower counter top in clinic Reps/Minutes 1. 2x30, 2. 2x30 Comments continues to have good feedback to stretch at lower ht Manual Therapy Treatment Consent Patient gave verbal consent for manual Yes treatment Soft Tissue Mobilization LLE Body Location calf, HS, glute Mobilization Type Rolling,Strumming,Sustained Pressure,Other Intensity/Depth Moderate Body Position Sidelying Comments Monitored for pain. Increased tightness and restriction, palpable relaxation with mobilization. lumbar spine Body Location B paraspinals, glutes, QL Mobilization Type Rolling,Strumming,Trigger Point Release,Other Intensity/Depth Moderate Body Position Sidelying Comments Pillow between legs. R side more restricted but L side. Performed sidelying pelvis anterior elevation<>posterior depression. Monitored for pain PT-OP-T Assessment and Plan Start: 12/27/23 07:22 Freq: Status: Active Protocol: Document 01/12/24 07:29 NM (Rec: 01/12/24 08:16 NM [id number]) Physical Therapy Assessment Goals Three Impairment compliance with HEP Skilled Nursing Goal (LTG) Pt will report compliance with HEP at least 3x/wk in order to maximize progression with PT and transition into maintenance program upon discharge 01/12/24: pt reports doing exercises daily LTG Duration 10 weeks 03/08/24 MET Two Impairment trunk strength 4-/5 Short Term Goal (STG) Pt will be educated on core bracing in various positions and be able to successfully demonstrate abdominal bracing at least 7/10 reps without cueing 01/12/24: Pt has been educated on core bracing, can successfully demo 7/10 in supine and sitting STG Duration 5 weeks 02/02/24 Skilled Nursing Goal (LTG) Pt will improve global trunk strength to at least 4/5 or better in order to demonstrate improved core bracing and increased trunk strength for spinal stability during ADLs LTG Duration 10 weeks 03/08/24 One Impairment Oswestry 46/100 indicating pain with ADLs and functional mobility Short Term Goal (STG) Pt will report that she is able to sit > 30 minutes and stand > 10 minutes without increase in low back pain (<7- 8/10) in order to demonstrate improved activity tolerance and symptom management 01/12/24: pt reports that she can sit for an hour before pain of 6/10 and has to change position; she reports that standing time is still about 10 minutes but reports 6/10 STG Duration 8 weeks 02/23/24 Business Continuity Manager Goal (LTG) Pt will report no increase in low back pain (<7-8/10) while cleaning her home in order to demonstrate improved activity tolerance and symptom management 01/12/24: pt reports that same at evaluation; however, reports more conscious of body mechanics during chores and with reaching/lifting LTG Duration 10 weeks 03/08/24 Progress Towards Goals Progress Towards Goals Progressing Toward Goals,Goals Met Progress Comments Progressing well toward goals and with pain management Assessment Summary Assessment Pt continues to have good tolerance for trunk and hip stretching; able to tolerate stretch from lower surface. Progressed seated core with good response from pt and core facilitation. Prn cues for trunk in midline and control but pt able to self correct with minimal cues. PT progressing toward goals; demos improvements in trunk AROM and trunk/hip strength since evaluation. Good response to gentle manual therapy today, improved muscle length and less tenderness/ tension in all paraspinals and LLE. Pt would continue to benefit from skilled PT for progressive trunk and hip strengthening and flexibility in order to improve ability to perform ADLs/IADLs. Physical Therapy Plan Frequency and Duration Frequency of Treatment 2x/Week Duration of treatment (weeks) 10 Plan of Care Start Date 12/27/23 Plan of Care End Date 03/08/24 Therapeutic Interventions Therapeutic Interventions Balance Training,Gait Training ,Home Exercise Program,Joint Mobilizations,Manual Therapy, Neuromuscular Re-education, Orthotic/Prosthetic Management ,Patient/Caregiver Education, Self-Care/Home Management, Sensory Integration,Soft Tissue Mobilization,Taping, Therapeutic Activities, Therapeutic Exercises Modalities Cold Pack/Ice Massage,Electric Stimulation,Hot Packs, Ultrasound Other Therapeutic Interventions No joint mobilizations to lumbar spine d/t anterolisthesis L5-S1, avoid end range flexion No mechanical traction Other Referrals/Consults Referrals/Consults Recommended Referral back to core maker/ accounting methods analyst for adjustment of AFO Next Visit Focus/Plan Next Note Type Treatment Note Next Visit Plan Review HEP as needed. Cont w/ segmental bridge, counter stretch, seated core bug with more flexion bias. Continue with seated core and hip strengthening. Can trial rows with lat pull down and carries. Manual to LLE/back prn. continue with stretching to LLE and trunk; modify and progress as needed
--- NOTE | 2024-02-05 07:46 | PT.OPDS ---
Current Diagnoses Other cerebral palsy (01/12/24) Stiffness of right hand, not elsewhere classified (01/12/24) Stiffness of right hip, not elsewhere classified (01/12/24) Stiffness of left hip, not elsewhere classified (01/12/24) Stiffness of right knee, not elsewhere classified (01/12/24) Stiffness of right ankle, not elsewhere classified (01/12/24) Spondylolisthesis, lumbosacral region (01/12/24) Radiculopathy, lumbosacral region (01/12/24) Other lack of coordination (01/12/24) Weakness (01/12/24) Visit Care Team Role Provider Type ALONDR[facility] [place] [facility] Provider Non-Staff Primary Care Provider Specialty: Nursing Address: [address] [place] [address], [phone] Fax: Email: Carlitos Thompson DO Attending Provider Physician Referring Provider Specialty: Interventional Radiology Physiatry Pain Management Address: [address] [place] [address], [phone] Email: [email or web address] Visit Number Visit Number 6 Discharge Summary PT-OP-B Current Condition Start: 12/27/23 07:22 Freq: Status: Active Protocol: Document 12/27/23 07:23 NM (Rec: 12/27/23 08:57 NM [id number]) Current Condition History of Current Condition Onset Date chronic Current Complaints pain History of Current Condition Pt presents with back pain, has had since 15-18 y.o. Onset gradually occurred. She states that has spondylolisthesis for several years. She has had PT in the past for same condition; however, had to stop going. She did plan to have surgery ( fusion) last year, but did not go through. She has [address] Thompson, planning to try PT. Pt reports pain with sitting for long periods, lying down except in specific position ( has to prop her leg up, lie on her side), standing for any period of time (except for alternating weight shift). She reports that the only thing that helps is consciously stabilizing her core, kegels . She has CP on R side (demos R toe walk). She does botox every 3 months on her R side ( leg, arm, hand). She has an AFO (with spring)- has had for a year but reports causes increased pain (prescribed by MD for adult CP). She has not had one since elementary school. States that in the past year, she reports that she has had worsening pain on her R side; whereas, she reports that her L side used to hurt more. Reports that she has pain worse on L side, but occasionally on R side. Has follow up for botox in January 2024; will follow up with Dr. Thompson in March to assess next plan. Prior Treatments and Tests Lumbar spine MRI 02/2023 Impression: Progression of grade 2 anterolisthesis at L5- S1 measuring 12 mm, previously 9 mm with associated pars interarticularis defects. Similar mild central canal stenosis at L5-S1 and several bilateral neural foraminal stenosis. Treatment Goals Patient/Caregiver Goals decrease pain PT-OP-C Subjective Start: 12/27/23 07:22 Freq: Status: Active Protocol: Document 01/12/24 07:29 NM (Rec: 01/12/24 08:16 NM [id number]) OP-PT Subjective Patient Comments Patient Comments Pt reports that she is is experiencing less paind uring the day and is able to do more during the day as far as household and ADLs. She is more concious of core. Worse is still waking up in the morning due to stiffness, or with sleeping. However, reports that changes in sleeping ergonomics has improved. PT-OP-F Manual Assessment Start: 12/27/23 07:22 Freq: Status: Active Protocol: Document 12/27/23 07:23 NM (Rec: 12/27/23 08:57 NM [id number]) Manual Assessments Soft Tissue Assessment Soft Tissue Mobility Assessment Shorted R gastrocnemius. B piriformis and paraspinals (L> R) shortened Joint Mobility Assessment Joint Mobility Assessment Hypermobility of lumbar spine. Hypomobility of B hips, R>L; empty end feels into flexion with rotation and limited by tone in sitting with RLE. R ankle hypomobile PT-OP-G Mobility & Gait Start: 12/27/23 07:22 Freq: Status: Active Protocol: Document 12/27/23 07:23 NM (Rec: 12/27/23 08:57 NM [id number]) OP Gait Assessment Gait Gait Assistance Required: Independent Distance (Feet) 150 Assistive Devices Assistive Device None Gait Deviations General Gait Pattern Antalgic,Decreased Feet Clearance Factors Limiting Gait Function Factors Limiting Gait Function Abnormal Tonal Influences, Decreased Strength,Limited Range of Motion,Pain Comments Gait Comments Demos R ankle plantarflexion with R hip hike during R swing and R knee remains flexed during R stance. Increased trunk rotation with R swing PT-OP-H Neuro Start: 12/27/23 07:22 Freq: Status: Active Protocol: Document 12/29/23 14:30 NM (Rec: 12/29/23 15:28 NM [id number]) Deep Tendon Reflex & Clonus Assessment Deep Tendon Reflex Left Achilles Deep Tendon Reflex 0 Absent Left Patellar Deep Tendon Reflex 0 Absent Right Achilles Deep Tendon Reflex 1+ Diminished Right Patellar Deep Tendon Reflex 2+ Normal Muscle Tone Tone Assessment Left Lower Extremity Muscle Tone Comments Modified Vidhi: 1 Demos immediate positioning into ankle plantarflexion/ inversion/supination PT-OP-J Posture/Palpation/Skin Start: 12/27/23 07:22 Freq: Status: Active Protocol: Document 12/27/23 07:23 NM (Rec: 12/27/23 08:57 NM [id number]) Posture Evaluation Position Standing Head/C-Spine Posture Forward Head Thorax Posture (L) Prominent L-Spine Posture Increased Lordosis Shoulder Posture (L) Rounded,(R) Rounded,(R) Elevated Pelvis Posture Anteriorly Tilted,(R) Iliac Crest Superior,(L) PSIS Posterior Hip Posture (L) Neutral,(R) Externally Rotated Knee Posture (L) Genu Valgus,(R) Genu Valgus,(R) Excess Flexion Ankle/Foot Posture (R) Plantarflexed,(R) Supinated,(R) Calcaneal Inversion,(R) Forefoot Inversion Palpation Assessment Location lumbar spine Palpation Details Tightness along B paraspinals, L>R Tenderness along L PSIS/SIJ, piriformis No tenderness with midline palpation except for L4-L5-S1- S2 PT-OP-K Range of Motion Start: 12/27/23 07:22 Freq: Status: Active Protocol: Document 01/12/24 07:29 NM (Rec: 01/12/24 08:16 NM [id number]) Lumbar Spine Range of Motion Lumbar Spine Active Percentage Flexion 60 Extension 10 Rotation Left 25 Rotation Right 50 Lateral Flexion Left 50 Lateral Flexion Right 25 Comments + flex, R LF, L rot ++ ext IE: 50% flex PT-OP-L Special Tests Start: 12/27/23 07:22 Freq: Status: Active Protocol: Document 12/27/23 07:23 NM (Rec: 12/27/23 08:57 NM [id number]) Special Tests Lumbar Spine Special Tests Slump Test Results - Comments no change in tension Distraction Test Results + Comments mild pain relief Roper/Quadrant Test Results + Comments L ea direction to toes Hip Special Tests FADIR Test Results + Comments posterior hip/buttock and back pain reproduced PT-OP-M Strength Start: 12/27/23 07:22 Freq: Status: Active Protocol: Document 01/12/24 07:29 NM (Rec: 01/12/24 08:16 NM [id number]) Trunk Strength Trunk Manual Muscle Testing Flexion 4 Good Extension 4 Good Rotation Left 4 Good Rotation Right 4 Good Lateral Flexion Left 4 Good Lateral Flexion Right 4 Good Comments no pain IE: 4-/5 01/12/24: 4/5 w/o pain Hip Strength Hip Manual Muscle Testing Right Flexion (L2) 4- Good- Abduction 4 Good Adduction 4- Good- External Rotation 3 Fair Internal Rotation 2+ Poor+ Comments IE: 3+/5 for hip flex Left Flexion (L2) 4 Good Abduction 4 Good External Rotation 4 Good Internal Rotation 4 Good PT-OP-T Assessment and Plan Start: 12/27/23 07:22 Freq: Status: Active Protocol: Document 02/05/24 07:41 NM (Rec: 02/05/24 07:46 NM [id number]) Physical Therapy Assessment Goals Three Impairment compliance with HEP Retirement Goal (LTG) Pt will report compliance with HEP at least 3x/wk in order to maximize progression with PT and transition into maintenance program upon discharge 01/12/24: pt reports doing exercises daily LTG Duration 10 weeks 03/08/24 MET Two Impairment trunk strength 4-/5 Short Term Goal (STG) Pt will be educated on core bracing in various positions and be able to successfully demonstrate abdominal bracing at least 7/10 reps without cueing 01/12/24: Pt has been educated on core bracing, can successfully demo 7/10 in supine and sitting STG Duration 5 weeks 02/02/24 Sap Pi Architect Goal (LTG) Pt will improve global trunk strength to at least 4/5 or better in order to demonstrate improved core bracing and increased trunk strength for spinal stability during ADLs LTG Duration 10 weeks 03/08/24 One Impairment Oswestry 46/100 indicating pain with ADLs and functional mobility Short Term Goal (STG) Pt will report that she is able to sit > 30 minutes and stand > 10 minutes without increase in low back pain (<7- 8/10) in order to demonstrate improved activity tolerance and symptom management 01/12/24: pt reports that she can sit for an hour before pain of 6/10 and has to change position; she reports that standing time is still about 10 minutes but reports 6/10 STG Duration 8 weeks 02/23/24 Sap Pi Architect Goal (LTG) Pt will report no increase in low back pain (<7-8/10) while cleaning her home in order to demonstrate improved activity tolerance and symptom management 01/12/24: pt reports that same at evaluation; however, reports more conscious of body mechanics during chores and with reaching/lifting LTG Duration 10 weeks 03/08/24 Assessment Summary Assessment Pt attended x5 visits following evaluation in December 2023 for back pain and radicular symptoms. Pt was progressing toward goals and demonstrates improvements in ability to perform ADLs with less discomfort. Demonstrates small improvements in ROM and strength. Oswestry disability index improved by 10 points since evaluation. Pt did not receive further visit authorization following 6 approved visits. Physical Therapy Plan Frequency and Duration Frequency of Treatment 2x/Week Duration of treatment (weeks) 10 Plan of Care Start Date 12/27/23 Plan of Care End Date 03/08/24 Therapeutic Interventions Therapeutic Interventions Balance Training,Gait Training ,Home Exercise Program,Joint Mobilizations,Manual Therapy, Neuromuscular Re-education, Orthotic/Prosthetic Management ,Patient/Caregiver Education, Self-Care/Home Management, Sensory Integration,Soft Tissue Mobilization,Taping, Therapeutic Activities, Therapeutic Exercises Modalities Cold Pack/Ice Massage,Electric Stimulation,Hot Packs, Ultrasound Other Therapeutic Interventions No joint mobilizations to lumbar spine d/t anterolisthesis L5-S1, avoid end range flexion No mechanical traction Other Referrals/Consults Referrals/Consults Recommended Referral back to tool tender/ safety net maker for adjustment of AFO Discharge Physical Therapy Discharge Comments Pt initially approved for 6 visits including evaluation. Pt did not receive authorization for further visits following 01/12/24 appointment despite demonstrating progression toward goals. Pt and PT had discussed lengthening time between visits earlier in plan of care, but pt declined in favor of 2x/wk due to scheduling. PT provided maintenance program at last session on 01/11, in addition to previous HEP. Pt will need new PT referral to return to PT in future. Next Visit Focus/Plan Next Note Type Discharge Summary Next Visit Plan discharge from PT
== END 2024-02-07 08:09 | disposition home or self-care (01) ==
LOC: PHYS 07:30
PROVIDERS: Family Provider Nurse Practitioner Family; PCP Nurse Practitioner Family; Referring Provider Physical Medicine & Rehabilitation; Visit Provider Physical Medicine & Rehabilitation
DX: M54.17 Radiculopathy, lumbosacral region (principal); M43.17 Spondylolisthesis, lumbosacral region; G80.8 Other cerebral palsy; R53.1 Weakness; M25.652 Stiffness of left hip, not elsewhere classified; M25.651 Stiffness of right hip, not elsewhere classified; M25.641 Stiffness of right hand, not elsewhere classified; M25.661 Stiffness of right knee, not elsewhere classified; M25.671 Stiffness of right ankle, not elsewhere classified; R27.8 Other lack of coordination
CPT/HCPCS: 97110; 97140; 97161

== ENCOUNTER 2024-03-21 14:31 | Outpatient (CLI) | payer OTHER, SELFPAY ==
[2024-03-21] VITALS (8 sets, daily range): BP systolic 111–144; BP diastolic 66–79; PULSE 67–77; RESP 12–21; TEMP 36.4; O2SAT 95–99
--- NOTE | 2024-03-21 14:32 | DI.RAD.S_ITS ---
PROCEDURE: PAIN L/SI FACET INJ/BLK 1STL INDICATIONS: Left L4-L5 and S1 medial branch blocks LA COMPARISON: None. FINDINGS/IMPRESSION: Fluoroscopic spot filming was performed to verify placement of spinal needles at the L4-S1 level(s), as labeled on the films. Appropriate location(s) of the needle tip(s) was confirmed by injection of iodinated contrast. Dictated by: Román Alfaro M.D. on 03/21/2024 at 22:14 Approved by: Román Alfaro M.D. on 03/21/2024 at 22:14
[2024-03-21] MEDS: MIDAZOLAM 2 MG/2 ML VIAL IV (16:36)
[2024-03-21] MEDS: BUPIVACAINE 0.5% (PF) 10 ML VIAL 2 ML INJ (16:39)
[2024-03-21] MEDS: iopamidoL 15 ML VIAL 3 ML INJ (16:39)
--- NOTE | 2024-03-21 16:59 | PM.PROC.IR.1 ---
Date/Time/Diagnoses Date of procedure: 03/21/24 Time of procedure: 16:59 Pre-procedure diagnosis: 1. FACET ARTHROPATHY Post-procedure diagnosis: same Procedure Notes Procedure: 1. Left L4, L5 and S1 MB BLOCKS LA Indications: Kaylynn is referred by GAYATRI Abrams for treatment of Left Axial LBP. Physician: Carlitos Thompson Total Fluoroscopy time (seconds): 12 Total sedation minutes: 13 Complications: none Procedure in detail & Post-procedure care: DESCRIPTION OF PROCEDURE Fluoroscopically guided, contrast-controlled left L4, L5 and S1 medial branch blocks with 0.5cc of 0.5% Marcaine. Following review of allergy and review of potential side effects and complications, including, but not necessarily limited to, infection, allergic reaction, local tissue breakdown, nerve injury, paralysis, stroke and possible , the patient indicated that the patient understood and agreed to proceed. An informed consent document was signed by the patient, witnessed by a nurse, and placed in the patient's chart. After review of previous anaesthesic history and IV conscious sedation the patient was deemed safe to proceed with today?s procedure with IV conscious sedation as ASA class II designation. Safety time-out was performed to confirm patient ID, procedure to be performed and site of procedure. IV sedation was accomplished with a combination of 2mg of Versed was administered by the RN after DO order, titrated to patient comfort during the course of the procedure while the patient remained responsive to all verbal commands. In the prone position, following sterile prep and drape of the lumbar region, the left L4, L5 and S1 anatomical location of the medial branch of the dorsal ramus was identified fluoroscopically. Subsequently an anesthetic skin wheal using 1% lidocaine solution was initiated at each of the anatomical spots. Subsequently then a 22-gauge 3.5-inch spinal needle was atraumatically introduced and advanced under fluoroscopic guidance at each of the corresponding sites at the left L4, L5 and S1 MB. After negative aspiration, 0.2cc of Isovue 200 was injected, confirming placement without vascular or intrathecal uptake. Subsequently then 0.5cc of 0.5% Marcaine solution was injected at each of the corresponding sites at the left L4, L5 and S1 medial branch locations. The patient tolerated the procedure well without signs or symptoms of complications. The patient tolerated the procedure well without signs or symptoms of complications prior to transfer to the recovery area continued monitoring without incident. Post-procedure, the patient was monitored initiating provocative activities to measure the amount of relief from block of the facetogenic pain. The patient reported a VAS of 7 prior to the procedure and a post-procedure VAS of 1. It has been a pleasure to assist in the diagnostic and therapeutic care of your patient. POST OP INSTRUCTIONS The patient was provided with a Pain Log to complete over the next several hours and subsequent days prior to the patient's follow up with the ordering physician. 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 The patient is aware, was provided, once again, with a Pain Log and will follow up with the referring physician for review and clinical correlation.
== END 2024-03-21 17:10 | disposition home or self-care (01) ==
LOC: RAD 14:32
PROVIDERS: Family Provider Nurse Practitioner Family; PCP Nurse Practitioner Family; Referring Provider Physical Medicine & Rehabilitation; Visit Provider Physical Medicine & Rehabilitation
DX: M47.816 Spondylosis without myelopathy or radiculopathy, lumbar region (principal); M47.817 Spondylosis without myelopathy or radiculopathy, lumbosacral region
CPT/HCPCS: 64493; 64494; 99152; J2250

== ENCOUNTER 2024-06-27 15:02 | Outpatient (CLI) | payer OTHER, SELFPAY ==
[2024-06-27] VITALS (9 sets, daily range): BP systolic 115–141; BP diastolic 64–78; PULSE 76–96; RESP 14–18; TEMP 35.6; O2SAT 97–100
[2024-06-27] MEDS: MIDAZOLAM 2 MG/2 ML VIAL IV (15:57)
[2024-06-27] MEDS: LIDOCAINE 2% INJ MDV 20ML 5 ML INJ (16:02)
[2024-06-27] MEDS: iopamidoL 15 ML VIAL 3 ML INJ (16:02)
--- NOTE | 2024-06-27 16:15 | P.PCN_ITS ---
Date/Time/Diagnoses Date of procedure: 06/27/24 Time of procedure: 16:15 Pre-procedure diagnosis: FACET ARTHROPATHY Post-procedure diagnosis: same Procedure Notes Procedure: 1. Left L4, L5 and S1 MB BLOCKS SA Indications: Kaylynn is referred by Dr. King for treatment of Left Axial LBP. Physician: Carlitos Thompson Total Fluoroscopy time (seconds): 12 Total sedation minutes: 7 Complications: none Procedure in detail & Post-procedure care: DESCRIPTION OF PROCEDURE Fluoroscopically guided, contrast-controlled left L4, L5 and S1 medial branch blocks with 0.5cc of 2% Lidocaine. Following review of allergy and review of potential side effects and complications, including, but not necessarily limited to, infection, allergic reaction, local tissue breakdown, nerve injury, paralysis, stroke and possible , the patient indicated that the patient understood and agreed to proceed. An informed consent document was signed by the patient, witnessed by a nurse, and placed in the patient's chart. After review of previous anaesthesic history and IV conscious sedation the patient was deemed safe to proceed with today?s procedure with IV conscious sedation as ASA class II designation. Safety time-out was performed to confirm patient ID, procedure to be performed and site of procedure. IV sedation was accomplished with a combination of 2mg of Versed was administered by the RN after DO order, titrated to patient comfort during the course of the procedure while the patient remained responsive to all verbal commands. In the prone position, following sterile prep and drape of the lumbar region, the left L4, L5 and S1 anatomical location of the medial branch of the dorsal ramus was identified fluoroscopically. Subsequently an anesthetic skin wheal using 1% lidocaine solution was initiated at each of the anatomical spots. Subsequently then a 22-gauge 3.5-inch spinal needle was atraumatically introduced and advanced under fluoroscopic guidance at each of the corresponding sites at the left L4, L5 and S1 MB. After negative aspiration, 0.2cc of Isovue 200 was injected, confirming placement without vascular or intrathecal uptake. Subsequently then 0.5cc of 2% Lidocaine solution was injected at each of the corresponding sites at the left L4, L5 and S1 medial branch locations. The patient tolerated the procedure well without signs or symptoms of complications. The patient tolerated the procedure well without signs or symptoms of complications prior to transfer to the recovery area continued monitoring without incident. Post-procedure, the patient was monitored initiating provocative activities to measure the amount of relief from block of the facetogenic pain. The patient reported a VAS of 7 prior to the procedure and a post-procedure VAS of 1. It has been a pleasure to assist in the diagnostic and therapeutic care of your patient. POST OP INSTRUCTIONS The patient was provided with a Pain Log to complete over the next several hours and subsequent days prior to the patient's follow up with the ordering physician. 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 The patient is aware, was provided, once again, with a Pain Log and will follow up with the referring physician for review and clinical correlation.
== END 2024-06-27 16:32 | disposition home or self-care (01) ==
LOC: RAD 15:02
PROVIDERS: Family Provider Nurse Practitioner Family; PCP Student in an Organized Health Care Education/Training Program; Referring Provider Physical Medicine & Rehabilitation; Visit Provider Physical Medicine & Rehabilitation
DX: M47.816 Spondylosis without myelopathy or radiculopathy, lumbar region (principal); M47.817 Spondylosis without myelopathy or radiculopathy, lumbosacral region
CPT/HCPCS: 64493; 64494; 99152; J2250

== ENCOUNTER → 2024-07-10 16:35 | Outpatient (CLI) | payer OTHER, SELFPAY | LOC: LAB 16:36 | PROVIDERS: Family Provider Nurse Practitioner Family; PCP Student in an Organized Health Care Education/Training Program; Visit Provider Family Medicine | DX: R30.9 Painful micturition, unspecified (principal) | CPT/HCPCS: 87077; 87086 ==

== ENCOUNTER → 2024-11-11 16:09 | Outpatient (CLI) | payer OTHER, SELFPAY ==
--- NOTE | 2024-11-11 16:13 | DI.RAD.S_ITS ---
PROCEDURE: XR LUMBAR SPINE MIN 4V INDICATIONS: lumbar facet arthropathy TECHNIQUE: 5 views of the lumbar spine acquired, including flexion and extension views. COMPARISON: None. FINDINGS: Lumbar spine curvature and alignment: Grade 2 L5-S1 spondylolisthesis due to chronic bilateral spondylolysis appreciated. Bones: There are no other osseous abnormalities. Disc spaces: Moderate L5-S1 degenerative disc and facet disease Soft tissues: No soft tissue swelling, calcification or mass. 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 This would typically result in severe central canal, lateral recess and bilateral IV foraminal narrowing with impingement of the exiting L5 and descending sacral roots. Please correlate with radiculopathy L5-S1 nerve root distribution. If surgery is planned , suggest MRI Dictated by: Henry Godwin M.D. on 11/12/2024 at 12:04 Approved by: Henry Godwin M.D. on 11/12/2024 at 12:06
== END ==
PROVIDERS: PCP Student in an Organized Health Care Education/Training Program; Referring Provider Physical Medicine & Rehabilitation; Visit Provider Physical Medicine & Rehabilitation
DX: M47.816 Spondylosis without myelopathy or radiculopathy, lumbar region (principal); M43.17 Spondylolisthesis, lumbosacral region; M47.817 Spondylosis without myelopathy or radiculopathy, lumbosacral region; M51.379 Other intervertebral disc degeneration, lumbosacral region without mention of lumbar back pain or lower extremity pain
CPT/HCPCS: 72110

== ENCOUNTER → 2025-02-08 09:13 | Outpatient (CLI) | payer OTHER, SELFPAY ==
--- NOTE | 2025-02-08 09:14 | DI.MRI.S_ITS ---
PROCEDURE: MR LUMBAR SPINE WO CON INDICATIONS: Low back pain, unspecified TECHNIQUE: Noncontrast sagittal T1 spin echo and T2 fast echo, sagittal STIR, and T2 fast spin echo through the lumbar spine. In cases with scoliosis, additional coronal T2 fast spin echo may be performed. COMPARISON: [facility], MR, MR LUMBAR SPINE WO CON, 02/11/2023, 9:13. FINDINGS: Image quality: Excellent. Alignment and Curvature: There is grade 1 anterolisthesis measuring 10 mm of L5 on S1 compared to approximately 12 mm on prior exam. Associated pars defect is present. Bone Marrow: Marrow is of normal overall signal. No acute vertebral body compression fractures. Spinal Cord: Conus medullaris terminates at the L1 level. Visualized cord demonstrates normal signal and size. Paraspinous Soft Tissues: No paravertebral masses. Discs: Severe disc desiccation L5-S1. T12-L1: No disc bulge, spinal stenosis or foraminal narrowing. No interval change L1-L2: No disc bulge, spinal stenosis or foraminal narrowing. No interval change. L2-L3: No disc bulge, spinal stenosis or foraminal narrowing. No interval change. L3-L4: No disc bulge, spinal stenosis or foraminal narrowing. No interval change. L4-L5: No disc bulge, spinal stenosis or foraminal narrowing. No interval change. Facet hypertrophy is present. L5-S1: Minimal disc bulge with mild spinal stenosis. Severe bilateral foraminal narrowing with compression of exiting L5 nerve roots bilaterally. Appearance is relatively unchanged. Facet hypertrophy. IMPRESSION: Stable interval exam demonstrating grade 1 anterolisthesis of L5 on S1 secondary to pars defect. Severe bilateral foraminal narrowing with compression of exiting L5 nerve roots. Dictated by: Hayley Carrasco M.D. on 02/10/2025 at 12:34 Approved by: Hayley Carrasco M.D. on 02/10/2025 at 13:11
== END ==
LOC: MRI 09:13
PROVIDERS: PCP Student in an Organized Health Care Education/Training Program; Referring Provider Student in an Organized Health Care Education/Training Program; Visit Provider Student in an Organized Health Care Education/Training Program
DX: S32.050D Wedge compression fracture of fifth lumbar vertebra, subsequent encounter for fracture with routine healing (principal); M47.816 Spondylosis without myelopathy or radiculopathy, lumbar region; M48.07 Spinal stenosis, lumbosacral region; M43.17 Spondylolisthesis, lumbosacral region; M54.50 Low back pain, unspecified; G89.29 Other chronic pain
CPT/HCPCS: 72148